=== PATIENT | female | born 1995 | race Caucasian/White ===

== ENCOUNTER 2019-06-29 12:14 | Outpatient (RCR) | payer OTHER, SELFPAY | END 2019-07-27 23:00 | disposition home or self-care (01) | LOC: SPT 12:14 | PROVIDERS: Family Provider Family Medicine; Visit Provider Family Medicine | DX: G89.29 Other chronic pain (principal); M54.6 Pain in thoracic spine | CPT/HCPCS: 97110 ×7; 97161 ==

== ENCOUNTER → 2020-01-19 11:23 | Outpatient (BNVA) | payer OTHER, SELFPAY | PROVIDERS: Family Provider Family Medicine; PCP Family Medicine; Visit Provider Nurse Practitioner Family | DX: R50.9 Fever, unspecified (principal); J06.9 Acute upper respiratory infection, unspecified; Z20.828 Contact with and (suspected) exposure to other viral communicable diseases | CPT/HCPCS: 87400; 87635 ==

== ENCOUNTER → 2020-06-03 11:42 | Outpatient (BNVA) | payer OTHER, SELFPAY | PROVIDERS: Family Provider Family Medicine; PCP Family Medicine; Visit Provider Nurse Practitioner Family | DX: J06.9 Acute upper respiratory infection, unspecified (principal) | CPT/HCPCS: 87635 ==

== ENCOUNTER 2023-04-25 10:25 | Outpatient (CLI) | payer OTHER, SELFPAY ==
--- NOTE | 2023-04-25 10:31 | XR_ITS ---
WS: [id number] Cervical spine, 3 views, 04/25/2023 Clinical Data: acute neck pain Comparison: None. Findings: No compression fractures are seen. The disc heights are normal. There is no prevertebral so ft tissue swelling. The odontoid is unremarkable. The soft tissues of the neck and the lung apices ar e normal. Impression: Negative cervical spine.
== END 2023-04-25 10:26 | disposition home or self-care (01) ==
PROVIDERS: PCP Family Medicine; Visit Provider Family Medicine
DX: M54.12 Radiculopathy, cervical region (principal)
CPT/HCPCS: 72040

== ENCOUNTER 2023-06-05 06:57 | Outpatient (RCR) | payer OTHER, SELFPAY | END 2023-06-27 23:59 | disposition home or self-care (01) | LOC: SPT 06:57 | PROVIDERS: PCP Family Medicine; Visit Provider Family Medicine | DX: M54.12 Radiculopathy, cervical region (principal) | CPT/HCPCS: 97110; 97161 ==

== ENCOUNTER 2023-06-28 06:00 | Outpatient (RCR) | payer OTHER, SELFPAY | END 2023-07-04 23:59 | disposition home or self-care (01) | LOC: SPT 06:00 | PROVIDERS: PCP Family Medicine; Visit Provider Family Medicine | DX: M54.12 Radiculopathy, cervical region (principal) | CPT/HCPCS: 97110; 97530 ==

== ENCOUNTER 2023-08-13 13:12 | Inpatient (IN) | payer OTHER, SELFPAY ==
[2023-08-13 13:18] VITALS: BP 110/73; PULSE 75; RESP 14; TEMP 36.8; O2SAT 98; BMI 27.8
--- NOTE | 2023-08-13 13:30 | ED.C_ITS ---
HPI - Psych 2 General: Chief Complaint: Psychiatric Symptoms Stated Complaint: MHE Time Seen by Provider: 08/13/23 13:14 Source: patient Mode of arrival: ambulatory Limitations: no limitations History of Present Illness: 19-year-old female has been having incre asing depression over the last 2 to 3 days. She states that she has had suicidal thoughts she attempted to jump out of the car she is also had plans of cutting her wrist. Patient's been admitted in the past has a long history depression denies any worsening proving factors. Associated symptoms: Reports depression and suicidal ideation Review of Systems 2 Const: Denies: fever(s), chills, body aches or change in appetite ENMT: Denies: throat pain or dental pain Card: Denies: chest pain Resp: Denies: dyspnea GI: Denies: abdominal pain, nausea, vomiting or diarrhea Musc: Denies: neck pain or back pain Skin/Breast: Denies: rash Neuro: Denies: headache(s) Psych: Reports: depression and suicidal ideation PFS ED 2 PFSH: Medical History Autism spectrum disorder Anxiety and depression Surgical History History of ankle surgery Family History Other CAD (coronary artery disease) Cancer Diabetes Social History Smoking and tobacco/nicotine status: never used tobacco/nicotine Alcohol intake: never Substance/Drug Use: never Physical Exam 2 Const: COMMON NORMALS: no acute distress, patient oriented x3 and healthy appearing HENMT: COMMON NORMALS: normocephalic and atraumatic HEAD & SCALP: n ormocephalic and atraumatic Eye: COMMON NORMALS: Equal, round and reactive pupils present and EOMs intact bilaterally PUPIL: Yes Equal, round and reactive pupils present Neck/C-Spine: COMMON NORMALS: full ROM and supple Chest: COMMONS NORMALS: normal inspection of the chest Resp: COMMON NORMALS: normal respiratory effort Cardio: COMMON NORMALS: regular rate, regular rhythm and No murmurs present (Cardio) RATE: regular rate RHYTHM: regular rhythm Extremity: COMMON NORMALS: normal to inspection and full ROM Neuro: COMMON NORMALS: patient oriented x3, moves all extremities and no focal motor deficits Psych: COMMON NORMALS: mental status grossly normal, Normal thought process present and cooperative MOOD & AFFECT: Yes depressed mood THOUGHT PROCESS: Normal thought process present THOUGHT CONTENT: Yes Suicidality present Skin: COMMON NORMALS: no rashes or lesions noted and no wounds GENERAL SKIN EXAM: no rashes or lesions noted Course 2 Vital Signs: Vital signs: Vital Signs Temperature 98.3 F 08/13/23 13:18 Pulse Rate 75 08/13/23 13:18 Respiratory Rate 14 08/13/23 13:18 Blood Pressure 110/73 08/13/23 13:18 Pulse Oximetry 98 08/13/23 13:18 Oxygen Delivery Me thod Room Air 08/13/23 13:18 MDM - Psych Medical Decision Making Patient presents here with suicidal ideation I did speak to psychiatrist patient is medically cleared she is voluntarily wanting admission will admit at this time. Medical Records I reviewed the patient's medical records. Lab Data I reviewed the patient's lab results. 08/13/23 14:05 08/13/23 14:05 Laboratory Results WBC 6.10 10^3/uL (3.29-11.43) 08/13/23 14:05 RBC 4.58 10^6/uL (3.85-5.65) 08/13/23 14:05 Hgb 14.70 g/dL (11.27-16.99) 08/13/23 14:05 Hct 42.8 % (36-47) 08/13/23 14:05 MCV 93.4 fl (85-98) 08/13/23 14:05 MCH 32.1 pg (27-33) 08/13/23 14:05 MCHC 34.3 g/dL (30-55) 08/13/23 14:05 RDW 11.5 % (12.1-15.1) L 08/13/23 14:05 Plt Count 280 10^3/cmm (157-399) 08/13/23 14:05 MPV 9.3 fL (7.4-10.4) 08/13/23 14:05 Neut % (Auto) 54.1 % 08/13/23 14:05 Lymph % (Auto) 38.7 % 08/13/23 14:05 [place] % (Auto) 6.1 % 08/13/23 14:05 Eos % (Auto) 0.7 % 08/13/23 14:05 Baso % (Auto) 0.2 % 08/13/23 14:05 Neut # (Auto) 3.31 10^3/uL (1.8-7.7) 08/13/23 14:05 Lymph # (Auto) 2.4 10^3/uL (0.8-4.8) 08/13/23 14:05 [place] # (Auto) 0.4 10^3/uL (0.2-0.9) 08/13/23 14:05 Eos # (Auto) 0.0 10^3/uL (0.0-0.8) 08/13/23 14:05 Baso # (Auto) 0.0 10^3/uL (0.0-0.1) 08/13/23 14:05 Nucleated RBC % (auto) 0 % 08/13/23 14:05 Nucleated RBCs # 0.0 /100WBC 08/13/23 14:05 HCG, Qual Negative (Negative) 08/13/23 13:30 Urine Opiates Screen Negative ng/mL (Negative) 08/13/23 13:30 Ur Barbiturates Screen Negative ng/mL (Negative) 08/13/23 13:30 Ur Phencyclidine Scrn Negative ng/mL (Negative) 08/13/23 13:30 Ur Amphetamines Screen Negative ng/mL (Negative) 08/13/23 13:30 U Benzodiazepines Scrn Positive ng/mL (Negative) H 08/13/23 13:30 Urine Cocaine Screen Negative ng/mL (Negative) 08/13/23 13:30 U Marijuana (THC) Screen Negative ng/mL (Negative) 08/13/23 13:30 No radiology studies performed this visit Discharge Plan Discharge Condition: Stable Prescriptions: No Action sumatriptan succinate 100 mg tablet See Rx Instructions PO .COMPLEX Qty: 9 3RF Rx Instructions: take 1 tab at onset of headache; if no relief may repeat 1 tab after at least 2 hrs; max = 4 tabs/24 hr PO lamotrigine 200 mg tablet 200 mg PO BID aripiprazole 15 mg tablet 15 mg PO DAILY propranolol 10 mg tablet 10 mg PO BID Qty: 60 3RF venlafaxine [Effexor XR] 75 mg capsule,extended release 24hr 75 mg PO QAM Qty: 90 0RF escitalopram oxalate [Lexapro] 20 mg tablet 20 mg PO DAILY Qty: 30 0RF albuterol sulfate 90 mcg/actuation HFA aerosol inhaler 2 puff inhalation Q4H PRN (Reason: shortness of breath or wheezing) Qty: 8.5 0RF ramelteon 8 mg tablet PO .qhs All Day Allergy (cetirizine) 10 mg capsule 10 mg PO BID lorazepam 2 mg tablet 2 mg PO QID ondansetron 4 mg tablet,disintegrating 4 mg PO Q6H PRN (Reason: nausea and vomiting) melatonin 3 mg capsule 12 mg PO .qhs chlordiazepoxide HCl 5 mg capsule 5 mg PO TID Referrals: Lexis Yusuf DO [Primary Care Provider] - Coding Level of Care Code ED Software Packager for Chg Gina
[2023-08-13 13:54] LABS: HCG Qualitative Urine. Negative (Negative)
[2023-08-13 14:05] LABS: Amphetamines Screen Urine Negative (Negative); Barbiturates Screen Urine Negative (Negative); Benzodiazepines Screen Urine Positive (Negative); Cocaine Screen Urine Negative (Negative); Opiate Screen Urine Negative (Negative); PCP Screen Urine Negative (Negative); THC Screen Urine Negative (Negative)
[2023-08-13 14:20] LABS: Basophils % 0.2 %; Eosinophils % 0.7 %; Hematocrit 42.8 % (36-47); Lymphocytes # 2.4 10^3/uL (0.8-4.8); Lymphocytes % 38.7 %; Mean Corpuscular HGB Conc 34.3 g/dL (30-55); Mean Corpuscular Hemoglobin 32.1 pg (27-33); Mean Corpuscular Volume 93.4 fl (85-98); Mean Platelet Volume 9.3 fL (7.4-10.4); Monocytes # 0.4 10^3/uL (0.2-0.9); Monocytes % 6.1 %; Neutrophils # 3.31 10^3/uL (1.8-7.7); Neutrophils % 54.1 %; Nucleated Red Blood Cells % 0 %; Platelet Count 280 10^3/cmm (157-399); Red Blood Count 4.58 10^6/uL (3.85-5.65); Red Cell Distribution Width 11.5 % (12.1-15.1)
[2023-08-13 14:38] LABS: Alanine Aminotransferase 15 U/L (0-33); Albumin Level 4.5 g/dL (3.5-5.2); Alkaline Phosphatase 80 U/L (35-105); Anion Gap 13.8 (5-19); Aspartate Amino Transferase 21 U/L (0-32); Blood Urea Nitrogen 16 mg/dL (6-20); Calcium 9.6 mg/dL (8.5-10.5); Carbon Dioxide 27 mmol/L (22-29); Chloride 104 mmol/L (98-107); Glucose 78 mg/dL (65-115); Osmolality Calculated 292 mOsm/kg (285-295); Potassium 3.8 mmol/L (3.5-5.1); Sodium 141 mmol/L (136-145); Total Bilirubin 0.2 mg/dL (0.15-1.2); Total Protein 7.5 g/dL (6.6-8.7)
[2023-08-13 14:43] LABS: Acetaminophen < 5.0 ug/mL (10-30); Alcohol Level < 10 mg/dL (0-10); Salicylate < 0.3 mg/dL (3-10)
[2023-08-13 15:32] VITALS: BP 132/82; PULSE 70; RESP 15; TEMP 36.8; O2SAT 99
[2023-08-13 15:51] VITALS: RESP 16
[2023-08-13 15:56] VITALS: BP 106/71; PULSE 72; RESP 16; TEMP 36.4; O2SAT 100
[2023-08-13] MEDS: propranolol 20 mg Tablet 10 MG PO (18:57)
[2023-08-13] MEDS: cetirizine 10 mg Tablet PO (18:58)
[2023-08-13] MEDS: flu vacc pf 2023-24 (6 mos+) 60 MCG IM (18:58)
[2023-08-13] MEDS: lamoTRIgine 100 mg Tablet 200 MG PO (18:58)
[2023-08-13] MEDS: LORazepam 2 mg Tablet PO (20:23)
[2023-08-13] MEDS: trazodone 50 mg Tablet PO (20:24)
[2023-08-13 20:44] VITALS: RESP 16
[2023-08-14 06:00] VITALS: BP 112/77; PULSE 77; RESP 16; TEMP 37.1; O2SAT 98
[2023-08-14] MEDS: venlafaxine ER (24HR) 75 mg Capsule PO (06:14)
[2023-08-14] MEDS: LORazepam 2 mg Tablet PO ×4 (06:18→18:10)
[2023-08-14] MEDS: ARIPiprazole 30 mg Tablet 15 MG PO (08:29)
[2023-08-14] MEDS: propranolol 20 mg Tablet 10 MG PO ×2 (08:29→17:39)
[2023-08-14] MEDS: cetirizine 10 mg Tablet PO ×2 (08:30→17:39)
[2023-08-14] MEDS: lamoTRIgine 100 mg Tablet 200 MG PO ×2 (08:30→17:39)
[2023-08-14] MEDS: escitalopram 10 mg Tablet 20 MG PO (08:30)
--- NOTE | 2023-08-14 13:17 | W.PM.NPUH&PS ---
Providers/Chief Complaint Admitting Physician: Klever Arredondo MD Primary Care Provider: Lexis Yusuf DO Chief Complaint: MHE HPI NPU History of Present Illness Kamini Meyer is a 27 year old female who was admitted to the neuropsychiatric unit after she had presented to the crisis center complaining of suicidal thoughts. She reported that she had been having recurring thoughts about wanting to go to have an and states that she had cut her arm with a razor blade while attempting to lay outside and freeze to in current fridge and cold temperatures. The patient had reported that she had also attempted to jump out of a moving vehicle. She reports that she has had struggles with managing her mood over the past 3 days after she had learned that her friend had lost a child 4 days after her . She reported that she has been feeling more sad and unmotivated while not wishing to engage in self-care including brushing her teeth. She endorses anhedonia. Patient had endorsed a past history of several psychiatric symptoms as she had reported a history of catatonia and a past history of psychosis. She reports that she has been diagnosed with schizoaffective disorder and states that she had previously been psychotic a few years ago with paranoia and irrational worries that had improved with the use of an antipsychotic agent. She reports frequently struggling with managing depression. She reports often having thoughts of harming herself but states that she is able to keep it under control. 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 She reports having struggles with managing social situations and reports having frequent bouts of anxiety with an inability to manage her emotions when she becomes extremely upset. She had reported that she had had some change in medication including the recent initiation of a beta-ramon for managing anxiety and headaches. She does report a recent increase in the frequency of headaches that she describes as quite disabling with a history of the presence of aura was and photosensitivity. The patient denied any current psychotic symptoms nor did she endorse any symptoms recently of worsening catatonia as she has been very compliant with her medication regimen. She does report some increase in hopelessness. She did not endorse any clear loli. She reported no change in appetite and reported some difficulties with falling asleep over the past 3 to 4 days. Inpatient/outpatient psychiatric history: Patient had been first psychiatrically hospitalized at the age of 17 and describes 3 other previous inpatient hospitalizations with no recent hospitalization in several years according to the patient. She reports that she follows Dr. Dennis Mary for outpatient psychiatric treatment in [place], [place] along with Sara Small for weekly psychotherapy at the [facility]. She had previously reported being treated for depression as early as age of 10. Drug and alcohol history: None Allergies: Cogentin Current medications: Abilify 15 mg daily, Zyrtec 10 mg twice a day, Librium 5 mg 3 times a day, Lexapro 20 mg daily, Lamictal 200 mg twice a day, lorazepam 2 mg 4 times a day, magnesium 200 mg twice a day, melatonin 12 mg at night, propranolol 10 mg twice a day, ondansetron, ramelteon 8 mg at night, sumatriptan as needed, Artane 2 mg tart twice a day, Effexor XR 75 mg daily, Legal history: None Family psychiatric history: None reported Social history: Patient was born in [facility] and raised by her mother and father in an intact family. Her mother is a physician and her father is a audiovisual tech. She has 2 sisters one was older age 30 and younger sibling age 24. She reports that she was homeschooled. She reports no history of sexual physical or emotional abuse. She had reported struggling with socially engaging with others in an age-appropriate fashion. She identifies herself as a heterosexual. She currently is not involved in any intimate relationships. She currently lives at home with her parents. She states that she had received an equivalent diploma and reports that she is taking some college courses. Meds NPU Home Medications Medication Instructions Recorded Confirmed Last Taken Type venlafaxine 75 mg capsule,extended 75 mg PO QAM #90 caps 10/24/20 08/13/23 08/13/23 Rx release 24 hr (Effexor XR) escitalopram oxalate 20 mg tablet 20 mg PO DAILY #30 tabs 10/19/21 08/13/23 08/13/23 Rx (Lexapro) albuterol sulfate 90 mcg/actuation 2 puff inhalation Q4H PRN 12/21/22 08/13/23 Unknown Rx aerosol inhaler shortness of breath or wheezing #8.5 grams aripiprazole 15 mg tablet 15 mg PO DAILY 04/23/23 08/13/23 08/13/23 History lamotrigine 200 mg tablet 200 mg PO BID 04/23/23 08/13/23 08/13/23 History sumatriptan succinate 100 mg tablet See Rx Instructions PO .COMPLEX #9 05/10/23 08/13/23 Unknown Rx tabs propranolol 10 mg tablet 10 mg PO BID #60 tabs 08/02/23 08/13/23 08/13/23 Rx cetirizine 10 mg capsule (All Day 10 mg PO BID 08/13/23 08/13/23 08/13/23 History Allergy (cetirizine)) chlordiazepoxide HCl 5 mg capsule 5 mg PO TID 08/13/23 08/13/23 08/13/23 History lorazepam 2 mg tablet 2 mg PO QID 08/13/23 08/13/23 08/13/23 History melatonin 3 mg capsule 12 mg PO BEDTIME 08/13/23 08/13/23 08/12/23 History ondansetron 4 mg disintegrating 4 mg PO Q6H PRN nausea and vomiting 08/13/23 08/13/23 Unknown History tablet ramelteon 8 mg tablet 8 mg PO BEDTIME 08/13/23 08/13/23 08/12/23 History trihexyphenidyl 2 mg tablet 2 mg PO BID 08/13/23 08/13/23 08/13/23 History magnesium 200 mg tablet 200 mg PO BID 08/14/23 08/14/23 08/13/23 History Allergies Allergy/AdvReac Type Severity Reaction Status Date / Time benztropine [From Cogentin] Allergy ALGY-Anaphy Verified 08/13/23 13:23 laxis PFSH NPU PFSH: Medical History (Updated 08/14/23 @ 15:56 by Klever Arredondo MD) Autism spectrum disorder Anxiety and depression Surgical History History of ankle surgery Family History Other CAD (coronary artery disease) Cancer Diabetes Social History Smoking and tobacco/nicotine status: never used tobacco/nicotine Alcohol intake: never Substance/Drug Use: never Mental Status Exam MSE Comments: She is a casually dressed overweight white female who was pleasant and cooperative on interview. She appeared to be having some difficulty sitting still with slight rocking behavior appreciated. She was alert and oriented to person place time and situation. Her gait was within normal limits. Her hygiene was fair. There was no evidence of any abnormal involuntary motor movements. Her thought process is linear logical and goal-directed. Her thought content showed evidence of suicidal ideation with a plan reported. She denied any homicidal ideation. She did not appear to be responding to internal stimuli. There was no clear evidence of delusional thinking. Her speech was normal in regards to rate, normal in volume and monotone in quality. Her attention span appeared fair. Her recent and remote memory appeared grossly intact. Her mood was described as anxious. Her affect was restricted in range and mood congruent. Her insight was poor. Her impulse control appeared poor. Her judgment was poor at this time. Vitals/I&O/Wt Last Vital Signs Temp 98.7 F 08/14/23 06:00 Pulse 77 08/14/23 06:00 Resp 16 08/14/23 06:00 BP 112/77 08/14/23 06:00 Pulse Ox 98 08/14/23 06:00 O2 Del Method Room Air 08/14/23 06:00 Weight last 48 hrs Weight 80.739 kg Data NPU 08/13/23 14:05 08/13/23 14:05 A&P Assessment and plan (1) Suicidal ideation: (2) Autistic disorder: (3) Schizoaffective disorder, depressive type: (4) Depressed mood: Plan Patient is a 27-year-old white female with likely autistic spectrum disorder along with a history of schizoaffective disorder depressed type and catatonia admitted with suicidal ideation and increased anxiety. 1. Encourage individual, group and milieu therapy. ?2.Restart medications with likely reduction in effexor xr to 37.5mg daily. 3.Continue q-15 minute checks for safety.? 4. Gathering collateral information Involuntary Hold Information 96 Hour Hold: 96 Hour Involuntary Admission: No Attestations NPU Medical Necessity Statement*: Inpatient hospitalization is medically necessary and deemed to ?be ?the clinically appropriate intervention ?at this time.? We will monitor/initiate medications and make changes as indicated.? The patient will be in the hospital for over 2 midnights.? The patient?s likely length of stay 2-4 days. Coding Level of Care Code Acute Code for Chg Fwd Diagnoses Suicidal ideation R45.851 Autistic disorder F84.0 Schizoaffective disorder, depressive type F25.1 Depressed mood R45.89
[2023-08-14 14:00] VITALS: BP 112/72; PULSE 96; RESP 13; TEMP 36.4; O2SAT 98
[2023-08-14] MEDS: acetaminophen 325 mg Tablet 650 MG PO (19:34)
[2023-08-14] MEDS: NON-FORMULARY MEDICATION (Ramelteon 8 mg tablet) 8 EACH PO (20:18)
[2023-08-14 20:45] VITALS: BP 104/70; PULSE 69; RESP 20; TEMP 36.5; O2SAT 100
[2023-08-15] MEDS: venlafaxine ER (24HR) 37.5 mg Capsule PO (05:45)
[2023-08-15 06:00] VITALS: BP 127/81; PULSE 90; RESP 20; TEMP 36.7; O2SAT 94
[2023-08-15] MEDS: LORazepam 2 mg Tablet PO ×3 (06:07→15:03)
[2023-08-15] MEDS: cetirizine 10 mg Tablet PO (10:53)
[2023-08-15] MEDS: propranolol 20 mg Tablet 10 MG PO (10:53)
[2023-08-15] MEDS: lamoTRIgine 100 mg Tablet 200 MG PO (10:54)
[2023-08-15] MEDS: escitalopram 10 mg Tablet 20 MG PO (10:55)
[2023-08-15] MEDS: ARIPiprazole 30 mg Tablet 15 MG PO (10:55)
[2023-08-15] MEDS: hyDROXYzine 25 mg Capsule 50 MG PO (12:32)
--- NOTE | 2023-08-15 14:36 | W.PM.NPUDCS ---
Diagnoses at Discharge Discharge Diagnosis (1) Schizoaffective disorder, depressive type: Status: Acute (2) Suicidal ideation: Status: Acute (3) Autistic disorder: Status: Acute (4) Depressed mood: Status: Acute Reason for Visit Reason for Visit: MHE Brief History: History of Present Illness Kamini Meyer is a 27 year old female who was admitted to the neuropsychiatric unit after she had presented to the crisis center complaining of suicidal thoughts. She reported that she had been having recurring thoughts about wanting to go to have an and states that she had cut her arm with a razor blade while attempting to lay outside and freeze to in current fridge and cold temperatures. The patient had reported that she had also attempted to jump out of a moving vehicle. She reports that she has had struggles with managing her mood over the past 3 days after she had learned that her friend had lost a child 4 days after her . She reported that she has been feeling more sad and unmotivated while not wishing to engage in self-care including brushing her teeth. She endorses anhedonia. Patient had endorsed a past history of several psychiatric symptoms as she had reported a history of catatonia and a past history of psychosis. She reports that she has been diagnosed with schizoaffective disorder and states that she had previously been psychotic a few years ago with paranoia and irrational worries that had improved with the use of an antipsychotic agent. She reports frequently struggling with managing depression. She reports often having thoughts of harming herself but states that she is able to keep it under control. The patient had endorsed a past history of autistic disorder with difficulties with social engagement, a history of rigid thinking and a history of stereotypies, difficulties with managing changes in routine, and restricted areas of interest that she had described as having been present since her resident physician in radiology. She reports having struggles with managing social situations and reports having frequent bouts of anxiety with an inability to manage her emotions when she becomes extremely upset. She had reported that she had had some change in medication including the recent initiation of a beta-ramon for managing anxiety and headaches. She does report a recent increase in the frequency of headaches that she describes as quite disabling with a history of the presence of aura was and photosensitivity. The patient denied any current psychotic symptoms nor did she endorse any symptoms recently of worsening catatonia as she has been very compliant with her medication regimen. She does report some increase in hopelessness. She did not endorse any clear loli. She reported no change in appetite and reported some difficulties with falling asleep over the past 3 to 4 days. Inpatient/outpatient psychiatric history: Patient had been first psychiatrically hospitalized at the age of 17 and describes 3 other previous inpatient hospitalizations with no recent hospitalization in several years according to the patient. She reports that she follows Dr. Dennis Mary for outpatient psychiatric treatment in [place], [place] along with Sara Small for weekly psychotherapy at the [facility]. She had previously reported being treated for depression as early as age of 10. Drug and alcohol history: None Allergies: Cogentin Current medications: Abilify 15 mg daily, Zyrtec 10 mg twice a day, Librium 5 mg 3 times a day, Lexapro 20 mg daily, Lamictal 200 mg twice a day, lorazepam 2 mg 4 times a day, magnesium 200 mg twice a day, melatonin 12 mg at night, propranolol 10 mg twice a day, ondansetron, ramelteon 8 mg at night, sumatriptan as needed, Artane 2 mg tart twice a day, Effexor XR 75 mg daily, Legal history: None Family psychiatric history: None reported Social history: Patient was born in [facility] and raised by her mother and father in an intact family. Her mother is a physician and her father is a cleaning associate. She has 2 sisters one was older age 30 and younger sibling age 24. She reports that she was homeschooled. She reports no history of sexual physical or emotional abuse. She had reported struggling with socially engaging with others in an age-appropriate fashion. She identifies herself as a heterosexual. She currently is not involved in any intimate relationships. She currently lives at home with her parents. She states that she had received an equivalent diploma and reports that she is taking some college courses. Hospital Course Hospital Course During the hospitalization, the patient had routine laboratory studies which were within normal limits except for a few outliers.? Additionally, there was a general medical evaluation which was also within normal limits and revealed no new acute processes.? At the time of discharge, lethality was denied and her suicidality was resolving. Mood and anxiety were well managed.? The patient endorsed a plan to avoid all drugs of abuse and follow up with the aftercare recommendations of the treatment team.? The patient was evaluated and deemed to be absent credible lethality and had achieved the maximum benefit from an inpatient hospitalization, and so was discharged.? The patient's medication were restarted with the only change being a reduction in effexor xr to 37.5mg daily with a plan to discontinue this medication after 1 week (at home). It was recommended that librium be tapered by 5mg a month over the next three months to avoid further polypharmacy issues. Involuntary Hold Information 96 Hour Hold: 96 Hour Involuntary Admission: No Mental Status Exam MSE Comments: She is a casually dressed overweight white female who was pleasant and cooperative on interview. She appeared to be having some difficulty sitting still but no clear stereotypies appreciated. She was alert and oriented to person place time and situation. Her gait was within normal limits. Her hygiene was fair. There was no evidence of any abnormal involuntary motor movements. Her thought process is linear logical and goal-directed. Her thought content showed evidence of suicidal ideation with a plan reported. She denied any homicidal ideation. She did not appear to be responding to internal stimuli. There was no clear evidence of delusional thinking. Her speech was normal in regards to rate, normal in volume and monotone in quality. Her attention span appeared fair. Her recent and remote memory appeared grossly intact. Her mood was described as better. Her affect was somewhat flat. Her insight was fair. Her impulse control appeared fair. Her judgment was adequate on discharge. Discharge Data Studies Completed and Pending: Laboratory Results WBC 6.10 10^3/uL (3.2 9-11.43) 08/13/23 14:05 RBC 4.58 10^6/uL (3.8 5-5.65) 08/13/23 14:05 Hgb 14.70 g/dL (11.27 -16.99) 08/13/23 14:05 Hct 42.8 % (36-47) 08/13/23 14:05 MCV 93.4 fl (85-98) 08/13/23 14:05 MCH 32.1 pg (27-33) 08/13/23 14:05 MCHC 34.3 g/dL (30-55) 08/13/23 14:05 RDW 11.5 % (12.1-15.1 ) L 08/13/23 14:05 Plt Count 280 10^3/cmm (157 -399) 08/13/23 14:05 MPV 9.3 fL (7.4-10.4) 08/13/23 14:05 Neut % (Auto) 54.1 % 08/13/23 14:05 Lymph % (Auto) 38.7 % 08/13/23 14:05 [place] % (Auto) 6.1 % 08/13/23 14:05 Eos % (Auto) 0.7 % 08/13/23 14:05 Baso % (Auto) 0.2 % 08/13/23 14:05 Neut # (Auto) 3.31 10^3/uL (1.8 -7.7) 08/13/23 14:05 Lymph # (Auto) 2.4 10^3/uL (0.8- 4.8) 08/13/23 14:05 [place] # (Auto) 0.4 10^3/uL (0.2- 0.9) 08/13/23 14:05 Eos # (Auto) 0.0 10^3/uL (0.0- 0.8) 08/13/23 14:05 Baso # (Auto) 0.0 10^3/uL (0.0- 0.1) 08/13/23 14:05 Nucleated RBC % (a uto) 0 % 08/13/23 14:05 Nucleated RBCs # 0.0 /100WBC 08/13/23 14:05 Sodium 141 mmol/L (136-1 45) 08/13/23 14:05 Potassium 3.8 mmol/L (3.5-5 .1) 08/13/23 14:05 Chloride 104 mmol/L (98-10 7) 08/13/23 14:05 Carbon Dioxide 27 mmol/L (22-29) 08/13/23 14:05 Anion Gap 13.8 (5-19) 08/13/23 14:05 BUN 16 mg/dL (6-20) 08/13/23 14:05 Creatinine 1.0 mg/dL (0.5-0. 9) H 08/13/23 14:05 GFR Calculation 66.0 mL/min (90-1 30) L 08/13/23 14:05 Glucose 78 mg/dL (65-115) 08/13/23 14:05 Calculated Osmolal ity 292 mOsm/kg (285- 295) 08/13/23 14:05 Calcium 9.6 mg/dL (8.5-10 .5) 08/13/23 14:05 Total Bilirubin 0.2 mg/dL (0.15-1 .2) 08/13/23 14:05 AST 21 U/L (0-32) 08/13/23 14:05 ALT 15 U/L (0-33) 08/13/23 14:05 Alkaline Phosphata se 80 U/L (35-105) 08/13/23 14:05 Total Protein 7.5 g/dL (6.6-8.7 ) 08/13/23 14:05 Albumin 4.5 g/dL (3.5-5.2 ) 08/13/23 14:05 Globulin 3.0 g/dL (1.3-4.6 ) 08/13/23 14:05 HCG, Qual Negative (Negati ve) 08/13/23 13:30 Salicylates < 0.3 mg/dL (3-10 ) L 08/13/23 14:05 Urine Opiates Scre en Negative ng/mL (N egative) 08/13/23 13:30 Acetaminophen < 5.0 ug/mL (10-3 0) L 08/13/23 14:05 Ur Barbiturates Sc reen Negative ng/mL (N egative) 08/13/23 13:30 Ur Phencyclidine S crn Negative ng/mL (N egative) 08/13/23 13:30 Ur Amphetamines Sc reen Negative ng/mL (N egative) 08/13/23 13:30 U Benzodiazepines Scrn Positive ng/mL (N egative) H 08/13/23 13:30 Urine Cocaine Scre en Negative ng/mL (N egative) 08/13/23 13:30 U Marijuana (THC) Screen Negative ng/mL (N egative) 08/13/23 13:30 Ethyl Alcohol < 10 mg/dL (0-10) 08/13/23 14:05 Vitals: Last Vital Signs Temp 98.1 F 08/15/23 06:00 Pulse 90 08/15/23 06:00 Resp 20 H 08/15/23 06:00 BP 127/81 08/15/23 06:00 Pulse Ox 94 08/15/23 06:00 O2 Del Method Room Air 01/18/24 06:00 Discharge Plan Discharge Patient Disposition: Home Condition: Stable Prescriptions: New venlafaxine 37.5 mg Capsule,Extended Release 24hr 37.5 mg PO QAM 7 Days Qty: 7 0RF Rx Instructions: Take for 7 days then discontinue Venlafaxine. Continued sumatriptan succinate 100 mg tablet See Rx Instructions PO .COMPLEX Qty: 9 3RF Rx Instructions: take 1 tab at onset of headache; if no relief may repeat 1 tab after at least 2 hrs; max = 4 tabs/24 hr PO lamotrigine 200 mg tablet 200 mg PO BID aripiprazole 15 mg tablet 15 mg PO DAILY propranolol 10 mg tablet 10 mg PO BID Qty: 60 3RF escitalopram oxalate [Lexapro] 20 mg tablet 20 mg PO DAILY Qty: 30 0RF albuterol sulfate 90 mcg/actuation HFA aerosol inhaler 2 puff inhalation Q4H PRN (Reason: shortness of breath or wheezing) Qty: 8.5 0RF ramelteon 8 mg tablet 8 mg PO BEDTIME All Day Allergy (cetirizine) 10 mg capsule 10 mg PO BID lorazepam 2 mg tablet 2 mg PO QID ondansetron 4 mg tablet,disintegrating 4 mg PO Q6H PRN (Reason: nausea and vomiting) melatonin 3 mg capsule 12 mg PO BEDTIME chlordiazepoxide HCl 5 mg capsule 5 mg PO TID trihexyphenidyl 2 mg tablet 2 mg PO BID magnesium 200 mg Tablet 200 mg PO BID Discontinued venlafaxine [Effexor XR] 75 mg capsule,extended release 24hr 75 mg PO QAM Qty: 90 0RF Discharge Orders: Discharge Order (Routine); Ordered 08/15/23 Ordered By: Klever Arredondo Referrals: [facility], MD Tyra [Other] - 10/18/23 1:30 pm (Contact the office to recieve a sooner appointment date) [facility]-Sara Small [Other] - 08/16/[address] [facility] [Outside] - 08/22/23 8:30 am (Initial assessment for casework services) Lexis Yusuf DO [Primary Care Provider] - Discharge Diet: Usual diet Discharge Activity: Resume usual activity Patient Instructions: Opioid Safety Plan of Treatment: Discussed need for further confirmation of autistic spectrum disorder-recommend schedule with neuropsychologist that uses ADOS2 scale. Consider attendance at [facility] trained therapist([facility]) -evidence based treatment for Autistic disorder. Recommend DBT (dialectical behavioral therapy) for management of chronic self injurious behavior and chronic parasuicidal behaviors (either group or individual DBT) Discharge Attestations NPU Time Spent in Discharge Care*: less than 30 min Specific Discharge Activities: Specific discharge activities: educating patient, discussing with case sealer/social workers/dc planners and documenting/other paperwork Coding Level of Care Code Acute Code for [facility] Fwd Diagnoses Schizoaffective disorder, depressive type F25.1 Suicidal ideation R45.851 Autistic disorder F84.0 Depressed mood R45.89
[2023-08-15 14:53] VITALS: BP 127/81; PULSE 90; RESP 20; TEMP 36.7; O2SAT 94
== END 2023-08-15 15:08 | disposition home or self-care (01) | DRG 885 ==
LOC: ER 13:33 → NP 15:11
PROVIDERS: Admitting Provider Psychiatry & Neurology Psychiatry; Emergency Provider Emergency Medicine; PCP Family Medicine; Visit Provider Psychiatry & Neurology Psychiatry
DX: F25.1 Schizoaffective disorder, depressive type (principal); R45.851 Suicidal ideations; F84.0 Autistic disorder
CPT/HCPCS: 80053; 80306; 80307; 81025; 85025; 90471; 90686; 97150; 97165; 99285

== ENCOUNTER → 2023-11-25 12:03 | Outpatient (BNVA) | payer OTHER, SELFPAY | PROVIDERS: PCP Family Medicine; Visit Provider Psychiatry & Neurology Psychiatry | DX: F41.9 Anxiety disorder, unspecified (principal); Z79.899 Other long term (current) drug therapy | CPT/HCPCS: 80061; 83036 ==

== ENCOUNTER 2024-02-10 14:51 | Outpatient (CLI) | payer OTHER, SELFPAY ==
[2023-12-12 16:59] VITALS: BP 123/71; BMI 32.5
== END 2024-02-10 14:52 | disposition home or self-care (01) ==
LOC: SLEEP 14:52
PROVIDERS: PCP Family Medicine; Visit Provider Family Medicine
DX: G47.33 Obstructive sleep apnea (adult) (pediatric) (principal)
CPT/HCPCS: G0399

== ENCOUNTER 2024-03-11 20:32 | Emergency (ER) | payer OTHER, SELFPAY ==
[2023-12-12 16:59] VITALS: BP 123/71; BMI 32.5
[2024-03-11 20:41] VITALS: BP 132/82; PULSE 91; RESP 16; TEMP 36.6; O2SAT 98; BMI 34.7
[2024-03-11 22:02] LABS: Bilirubin Urine Negative (Negative); Blood Urine Negative (Negative); Glucose Urine UA Negative (Normal); Ketones Urine Negative (Negative); Leukocyte Esterase Urine Negative (Negative); Nitrate Urine Negative (Negative); Protein Urine Negative (Negative); Specific Gravity, Urine 1.012 (1.005-1.030); Urine Appearance Clear (CLEAR); Urine Color Yellow (Yellow); Urobilinogen Urine 0.2 mg/dL (Negative); pH Urine 5.5 (5-7)
[2024-03-11 22:07] LABS: Bacteria Urine None Seen /hpf; Hyaline Casts Urine 0-4 /lpf; RBC Urine 0-2 /hpf (0-2); Squamous Epithelial Cell Urine 0-5 /hpf (0-5); WBC Urine 0-5 /hpf (0-5)
--- NOTE | 2024-03-11 22:28 | W.ED.ALLEREA ---
HPI - Allergic Reaction General: Chief complaint: Allergic Reaction Stated complaint: Allergic reaction, sob Time Seen by Provider: 03/11/24 21:22 History of Present Illness: HPI narrative: 28-year-old female with a history of asthma and autism who presents the emergency room with episodes of vomiting. She says she ate some salad dressing that she thought she was having allergic reaction to. She said it made her throw up. She became concerned that this might cause her to stop breathing. She has not been short of breath and had no chest pain. No rash. She did take some Benadryl. She said she had another episode of nausea and vomiting this afternoon which made her come to the emergency room. No abdominal pain. No chest pain. No shortness of breath. No fevers. Related Data Home Medications Medication Instructions Recorded Confirmed aripiprazole 15 mg tablet 15 mg PO DAILY 04/23/23 01/23/24 lamotrigine 200 mg tablet 200 mg PO BID 04/23/23 01/23/24 cetirizine 10 mg capsule (All Day 10 mg PO BID 08/13/23 01/23/24 Allergy (cetirizine)) lorazepam 2 mg tablet 2 mg PO QID 08/13/23 01/23/24 melatonin 3 mg capsule 12 mg PO BEDTIME 08/13/23 01/23/24 ramelteon 8 mg tablet 8 mg PO BEDTIME 08/13/23 01/23/24 magnesium 200 mg tablet 200 mg PO BID 08/14/23 01/23/24 escitalopram oxalate 20 mg tablet 40 mg PO DAILY 01/23/24 (Lexapro) Previous Rx's Medication Instructions Recorded meloxicam 15 mg tablet 15 mg PO DAILY #30 tabs 11/19/23 sumatriptan succinate 100 mg tablet See Rx Instructions .Route 12/11/23 .COMPLEX #9 ea topiramate 25 mg tablet (Topamax) 25 mg PO BID 1 month #60 tabs 01/23/24 albuterol 90 mcg-budesonide 80 2 inh inhalation BID PRN wheezing 02/10/24 mcg/actuation HFA aerosol inhaler #10.7 grams (Airsupra) Auto CPAP machine with tubing and #1 ea 02/13/24 supplies ondansetron 8 mg disintegrating 8 mg PO Q6H #14 tabs 03/11/24 tablet Allergies Allergy/AdvReac Type Severity Reaction Status Date / Time benztropine [From Cogentin] Allergy ALGY-Anaphy Verified 01/23/24 07:55 laxis Review of Systems Narrative: Constitutional symptoms: Negative except as documented in HPI. Skin symptoms: Negative except as documented in HPI. Eye symptoms: Negative except as documented in HPI. ENMT symptoms: Negative except as documented in HPI. Respiratory symptoms: Negative except as documented in HPI. Cardiovascular symptoms: Negative except as documented in HPI. Gastrointestinal symptoms: Negative except as documented in HPI. Genitourinary symptoms: Negative except as documented in HPI. Musculoskeletal symptoms: Negative except as documented in HPI. Neurologic symptoms: Negative except as documented in HPI. Psychiatric symptoms: Negative except as documented in HPI. Endocrine symptoms: Negative except as documented in HPI. PFSH ED PFSH: Medical History (Updated 03/11/24 @ 23:06 by Bee Pierce MD) Obstructive sleep apnea of adult Psychiatric care Autism spectrum disorder Anxiety and depression Surgical History History of ankle surgery Family History Other CAD (coronary artery disease) Cancer Diabetes Social History Smoking and tobacco/nicotine status: never used tobacco/nicotine Alcohol intake: never Substance/Drug Use: never Physical Exam Narrative: EXAM NARRATIVE: General: Alert, no acute distress. Skin: Warm, dry. Head: Normocephalic, atraumatic. Neck: Supple, trachea midline. Eye: Extraocular movements are intact. Ears, nose, mouth and throat: mucosa moist. Cardiovascular: Regular, Normal peripheral perfusion. Respiratory: Lungs are clear to auscultation, respirations are non-labored, breath sounds are equal, Symmetrical chest wall expansion. Gastrointestinal: Soft, Nontender, Non distended Musculoskeletal: Normal ROM, no deformity. Neurological: Alert and oriented, No focal neurological deficit observed. Psychiatric: Cooperative, odd affect Course Vital Signs: Vital signs: Vital Signs Temperature 97.9 F 03/11/24 20:41 Pulse Rate 80 03/11/24 23:00 Respiratory Rate 16 03/11/24 23:00 Blood Pressure 129/80 03/11/24 23:00 Pulse Oximetry 95 03/11/24 23:00 Oxygen Delivery Me thod Room Air 03/11/24 23:00 MDM - Allergic Reaction Medical Decision Making Medical decision making: Differential diagnosis for this patient with nausea and vomiting including but not limited to and based on the above HPI, review of systems and physical exam: Urinary tract infection. Appendicitis. Cholecystis. colitis. small bowel obstruction. crohn's flare. pancreatitis. gastritis. peptic ulcer. cyclic vomiting. Viral illness. Influenza. COVID. - Workup - labwork and imaging ordered to evaluate, rule in and rule out above pathologies. Lab Review: Laboratory results were reviewed and interpreted by myself the emergency room physician. Lab work is unremarkable. No leukocytosis. No anemia. No renal failure. Lipase is negative. Urinalysis is normal. I reviewed the patient's medical record. Reexamination: Patient remained stable. No increased work of breathing. No altered mental status. No focal motor deficits. Assessment and plan: Vomiting - Discharged home - Discussed plan with patient. Answered any questions. - Evaluation and treatment of this problem were appropriate in the emergency setting. Lab Data 03/11/24 22:20 03/11/24 22:20 Laboratory Results WBC 7.89 10^3/uL (3.29-11.43) 03/11/24 22:20 RBC 4.37 10^6/uL (3.85-5.65) 03/11/24 22:20 Hgb 13.30 g/dL (11.27-16.99) 03/11/24 22:20 Hct 40.0 % (36-47) 03/11/24 22:20 MCV 91.5 fl (85-98) 03/11/24 22:20 MCH 30.4 pg (27-33) 03/11/24 22:20 MCHC 33.3 g/dL (30-55) 03/11/24 22:20 RDW 12.0 % (12.1-15.1) L 03/11/24 22:20 Plt Count 320 10^3/cmm (157-399) 03/11/24 22:20 MPV 8.9 fL (7.4-10.4) 03/11/24 22:20 Neut % (Auto) 56.5 % 03/11/24 22:20 Lymph % (Auto) 33.6 % 03/11/24 22:20 [place] % (Auto) 8.4 % 03/11/24 22:20 Eos % (Auto) 0.8 % 03/11/24 22:20 Baso % (Auto) 0.4 % 03/11/24 22:20 Neut # (Auto) 4.47 10^3/uL (1.8-7.7) 03/11/24 22:20 Lymph # (Auto) 2.7 10^3/uL (0.8-4.8) 03/11/24 22:20 [place] # (Auto) 0.7 10^3/uL (0.2-0.9) 03/11/24 22:20 Eos # (Auto) 0.1 10^3/uL (0.0-0.8) 03/11/24 22:20 Baso # (Auto) 0.0 10^3/uL (0.0-0.1) 03/11/24 22:20 Nucleated RBC % (auto) 0 % 03/11/24 22:20 Nucleated RBCs # 0.0 /100WBC 03/11/24 22:20 Sodium 139 mmol/L (136-145) 03/11/24 22:20 Potassium 3.8 mmol/L (3.5-5.1) 03/11/24 22:20 Chloride 103 mmol/L (98-107) 03/11/24 22:20 Carbon Dioxide 22 mmol/L (22-29) 03/11/24 22:20 Anion Gap 17.8 (5-19) 03/11/24 22:20 BUN 17 mg/dL (6-20) 03/11/24 22:20 Creatinine 0.7 mg/dL (0.5-0.9) 03/11/24 22:20 GFR Calculation 98.9 mL/min (90-130) 03/11/24 22:20 Glucose 94 mg/dL (65-115) 03/11/24 22:20 Calculated Osmolality 289 mOsm/kg (285-295) 03/11/24 22:20 Calcium 9.0 mg/dL (8.5-10.5) 03/11/24 22:20 Total Bilirubin 0.2 mg/dL (0.15-1.2) 03/11/24 22:20 AST 26 U/L (0-32) 03/11/24 22:20 ALT 30 U/L (0-33) 03/11/24 22:20 Alkaline Phosphatase 91 U/L (35-105) 03/11/24 22:20 C-Reactive Protein 3.0 mg/L (0.0-4.9) 03/11/24 22:20 Total Protein 7.3 g/dL (6.6-8.7) 03/11/24 22:20 Albumin 4.3 g/dL (3.5-5.2) 03/11/24 22:20 Globulin 3.0 g/dL (1.3-4.6) 03/11/24 22:20 Lipase 23 U/L (13-60) 03/11/24 22:20 Urine Color Yellow (Yellow) 03/11/24 21:45 Urine Appearance Clear (CLEAR) 03/11/24 21:45 Urine pH 5.5 (5-7) 03/11/24 21:45 Ur Specific [place] 1.012 (1.005-1.030) 03/11/24 21:45 Urine Protein Negative (Negative) 03/11/24 21:45 Urine Glucose (UA) Negative (Normal) 03/11/24 21:45 Urine Ketones Negative (Negative) 03/11/24 21:45 Urine Blood Negative (Negative) 03/11/24 21:45 Urine Nitrate Negative (Negative) 03/11/24 21:45 Urine Bilirubin Negative (Negative) 03/11/24 21:45 Urine Urobilinogen 0.2 mg/dL (Negative) 03/11/24 21:45 Ur Leukocyte Esterase Negative (Negative) 03/11/24 21:45 Urine RBC 0-2 /hpf (0-2) 03/11/24 21:45 Urine WBC 0-5 /hpf (0-5) 03/11/24 21:45 Ur Squamous Epith Cells 0-5 /hpf (0-5) 03/11/24 21:45 Amorphous Sediment Not Reportable 03/11/24 21:45 Urine Bacteria None seen /hpf (NONE) 03/11/24 21:45 Hyaline Casts 0-4 /lpf H 03/11/24 21:45 No radiology studies performed this visit Discharge Plan Discharge Patient Disposition: Home Clinical Impression: Vomiting Condition: Stable Prescriptions: New ondansetron 8 mg tablet,disintegrating 8 mg PO Q6H Qty: 14 0RF Rx Instructions: Take 1/2-1 tab every 6 hours as needed for nausea and vomiting No Action lamotrigine 200 mg tablet 200 mg PO BID aripiprazole 15 mg tablet 15 mg PO DAILY meloxicam 15 mg tablet 15 mg PO DAILY Qty: 30 0RF escitalopram oxalate [Lexapro] 20 mg tablet 40 mg PO DAILY Rx Instructions: increased by PCP per patient report topiramate [Topamax] 25 mg tablet 25 mg PO BID 30 Days Qty: 60 6RF ramelteon 8 mg tablet 8 mg PO BEDTIME All Day Allergy (cetirizine) 10 mg capsule 10 mg PO BID lorazepam 2 mg tablet 2 mg PO QID melatonin 3 mg capsule 12 mg PO BEDTIME sumatriptan succinate 100 mg tablet See Rx Instructions .ROUTE .COMPLEX Qty: 9 3RF Dose Instruction: TAKE 1 TABLET BY MOUTH at ONSET of headache *if no RELIEF MAY REPEAT ONE tab AFTER at least TWO hours* *max of FOUR tabs PER day* Rx Instructions: TAKE 1 TABLET BY MOUTH at ONSET of headache *if no RELIEF MAY REPEAT ONE tab AFTER at least TWO hours* *max of FOUR tabs PER day* Airsupra 90-80 mcg/actuation HFA aerosol inhaler 2 inh inhalation BID PRN (Reason: wheezing) Qty: 10.7 2RF (DME) Auto CPAP machine with tubing and supplies See Rx Instructions .Route .MEDSUPPLY Qty: 1 0RF Rx Instructions: As directed, recommend a auto CPAP settings 6-16 magnesium 200 mg Tablet 200 mg PO BID Discharge Orders: Discharge ED (Routine); Ordered 03/11/24 Ordered By: Bee Pierce Patient Instructions: Acute Nausea and Vomiting (DC) Activity Restrictions/Additional Instructions: Thank you for choosing [facility] for your healthcare needs today. Please realize this is an emergency room and that we are providing you with a medical screening exam and this may not be complete and all inclusive of all the testing and or work up that you may need to determine your ailment or severity of your illness. You have been screened and evaluated and felt safe for discharge. Health conditions do change or evolve sometimes and as such it is important that you follow up with your Primary Doctor to be re checked, 3-5 days is a general good time frame for follow up. You are always welcome to return to the ED for re assessment if your symptoms are worsening or you have new concerns Coding Level of Care Code ED Retail Merchandising Coordinator for Akilah Fuentes
[2024-03-11 22:33] LABS: Basophils % 0.4 %; Eosinophils # 0.1 10^3/uL (0.0-0.8); Eosinophils % 0.8 %; Lymphocytes # 2.7 10^3/uL (0.8-4.8); Lymphocytes % 33.6 %; Mean Corpuscular HGB Conc 33.3 g/dL (30-55); Mean Corpuscular Hemoglobin 30.4 pg (27-33); Mean Corpuscular Volume 91.5 fl (85-98); Mean Platelet Volume 8.9 fL (7.4-10.4); Monocytes # 0.7 10^3/uL (0.2-0.9); Monocytes % 8.4 %; Neutrophils # 4.47 10^3/uL (1.8-7.7); Neutrophils % 56.5 %; Nucleated Red Blood Cells % 0 %; Platelet Count 320 10^3/cmm (157-399); Red Blood Count 4.37 10^6/uL (3.85-5.65); White Blood Count 7.89 10^3/uL (3.29-11.43)
[2024-03-11 22:56] LABS: Alanine Aminotransferase 30 U/L (0-33); Albumin Level 4.3 g/dL (3.5-5.2); Alkaline Phosphatase 91 U/L (35-105); Anion Gap 17.8 (5-19); Aspartate Amino Transferase 26 U/L (0-32); Blood Urea Nitrogen 17 mg/dL (6-20); Carbon Dioxide 22 mmol/L (22-29); Chloride 103 mmol/L (98-107); Creatinine Clr Calc Pharmacy 144.5936; Glomerular Filtration Rate 98.9 mL/min (90-130); Glucose 94 mg/dL (65-115); Lipase 23 U/L (13-60); Osmolality Calculated 289 mOsm/kg (285-295); Potassium 3.8 mmol/L (3.5-5.1); Sodium 139 mmol/L (136-145); Total Bilirubin 0.2 mg/dL (0.15-1.2); Total Protein 7.3 g/dL (6.6-8.7)
[2024-03-11 23:00] VITALS: BP 129/80; PULSE 80; RESP 16; O2SAT 95
== END 2024-03-11 23:15 | disposition home or self-care (01) ==
PROVIDERS: Emergency Provider Emergency Medicine
DX: R11.11 Vomiting without nausea (principal); F84.0 Autistic disorder
CPT/HCPCS: 36415; 80053; 81001; 83690; 85025; 86140; 99283

== ENCOUNTER 2024-03-25 17:49 | Inpatient (IN) | payer OTHER, SELFPAY ==
[2023-12-12 16:59] VITALS: BP 123/71; BMI 32.5
[2024-03-25 17:54] VITALS: BP 143/87; PULSE 72; RESP 16; TEMP 36.7; O2SAT 99; BMI 37.4
--- NOTE | 2024-03-25 18:05 | ECG_ITS ---
[facility] Test Date: 2024-03-25 Pat Name: Kamini Meyer Department: Room: Gender: Female Wet Finisher: : 1995 Requested By: Bee Nugent Order Number: [id number] Yuri MD: Kaushal Borges M.D. Measurements Intervals [place] Rate: 60 P: 47 [place]: 226 QRS: 74 QRSD: 93 T: 37 QT: 390 QTc: 391 Interpretive Statements SINUS RHYTHM WITH FIRST DEGREE AV BLOCK Compared to ECG 11/17/2015 13:54:05 First degree AV block now present T-wave abnormality no longer present Electronically Signed On 03-26-2024 9:02:30 CDT by Kaushal Borges M.D. [id number]
--- NOTE | 2024-03-25 18:06 | PC.NURSE ---
POISON CONTROL CONTACTED. MINOR SYMPTOMS EXPECTED: GI UPSET, N/V, DIZZINESS, MARTINEZ. BASELINE LABS, DRUG SCREEN NEEDED. PROVIDER NOTIFIED.
[2024-03-25 18:54] LABS: Basophils % 0.4 %; Eosinophils # 0.1 10^3/uL (0.0-0.8); Hematocrit 41.8 % (36-47); Lymphocytes # 3.2 10^3/uL (0.8-4.8); Lymphocytes % 41.1 %; Mean Corpuscular HGB Conc 33.3 g/dL (30-55); Mean Corpuscular Hemoglobin 30.3 pg (27-33); Mean Corpuscular Volume 91.3 fl (85-98); Mean Platelet Volume 9.2 fL (7.4-10.4); Monocytes # 0.6 10^3/uL (0.2-0.9); Monocytes % 7.9 %; Neutrophils # 3.86 10^3/uL (1.8-7.7); Neutrophils % 49.5 %; Nucleated Red Blood Cells % 0 %; Platelet Count 305 10^3/cmm (157-399); Red Blood Count 4.58 10^6/uL (3.85-5.65); Red Cell Distribution Width 12.2 % (12.1-15.1); White Blood Count 7.81 10^3/uL (3.29-11.43)
--- NOTE | 2024-03-25 18:54 | PC.NURSE ---
EKG performed by murtaza.
--- NOTE | 2024-03-25 19:03 | PC.NURSE ---
Patient was dressed out and placed in green paper scrubs. All belongings removed from patient.
--- NOTE | 2024-03-25 19:04 | PC.NURSE ---
Dr Pierce updated patient and patient's mother on current patient status as well as intentions to admit.
[2024-03-25 19:05] LABS: HCG, Serum Qual Negative (Negative)
--- NOTE | 2024-03-25 19:06 | PC.NURSE ---
Per Dr Pierce, mother is allowed to remain at bedside as well as administer home meds.
--- NOTE | 2024-03-25 19:08 | PC.NURSE ---
Adenike VELOZ and preceptor Ruthy VELOZ assumed care of patient at shift change from Lina VELOZ.
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
[2024-03-25 19:19] VITALS: BP 109/62; PULSE 80; RESP 16; O2SAT 97
[2024-03-25 19:26] LABS: Bilirubin Urine Negative (Negative); Blood Urine Negative (Negative); Glucose Urine UA Negative (Normal); Ketones Urine Negative (Negative); Leukocyte Esterase Urine Negative (Negative); Nitrate Urine Negative (Negative); Protein Urine Negative (Negative); Specific Gravity, Urine 1.014 (1.005-1.030); Urine Appearance Clear (CLEAR); Urine Color Yellow (Yellow); Urobilinogen Urine 0.2 mg/dL (Negative); pH Urine 6.5 (5-7)
[2024-03-25 19:27] LABS: Alanine Aminotransferase 31 U/L (0-33); Albumin Level 4.6 g/dL (3.5-5.2); Alkaline Phosphatase 98 U/L (35-105); Anion Gap 17.9 (5-19); Aspartate Amino Transferase 27 U/L (0-32); Blood Urea Nitrogen 17 mg/dL (6-20); Calcium 9.5 mg/dL (8.5-10.5); Carbon Dioxide 22 mmol/L (22-29); Chloride 103 mmol/L (98-107); Creatinine Clr Calc Pharmacy 169.6404; Globulin 3.1 g/dL (1.3-4.6); Glomerular Filtration Rate 118.2 mL/min (90-130); Glucose 92 mg/dL (65-115); Osmolality Calculated 289 mOsm/kg (285-295); Potassium 3.9 mmol/L (3.5-5.1); Sodium 139 mmol/L (136-145); Total Bilirubin 0.2 mg/dL (0.15-1.2); Total Protein 7.7 g/dL (6.6-8.7)
[2024-03-25 19:32] LABS: Amphetamines Screen Urine Negative (Negative); Barbiturates Screen Urine Negative (Negative); Benzodiazepines Screen Urine Positive (Negative); Cocaine Screen Urine Negative (Negative); Opiate Screen Urine Negative (Negative); PCP Screen Urine Negative (Negative); THC Screen Urine Negative (Negative)
[2024-03-25 19:33] VITALS: BP 116/77; PULSE 97; RESP 26
[2024-03-25 19:39] LABS: Bacteria Urine Trace /hpf; Hyaline Casts Urine 0-4 /lpf; RBC Urine 0-2 /hpf (0-2); Squamous Epithelial Cell Urine 0-5 /hpf (0-5); WBC Urine 0-5 /hpf (0-5)
[2024-03-25 19:43] LABS: Acetaminophen < 5.0 ug/mL (10-30); Alcohol Level < 10 mg/dL (0-10); Salicylate < 0.3 mg/dL (3-10)
[2024-03-25 20:09] VITALS: BP 117/85; PULSE 90; RESP 15; O2SAT 95
[2024-03-25 20:25] VITALS: BP 117/85; PULSE 93; RESP 16; O2SAT 96
[2024-03-25 21:22] VITALS: BP 106/73; PULSE 91; RESP 18; TEMP 36.4; O2SAT 98
[2024-03-25] MEDS: ondansetron 4 MG Tablet 8 MG PO (23:30)
[2024-03-26 04:29] VITALS: BP 98/56; PULSE 63; RESP 16; TEMP 35.8; O2SAT 98
--- NOTE | 2024-03-26 07:57 | PC.NURSE ---
During admission assessment, patient stated that she was in a bad head space yesterday. patient reports consuming an entire bottle of ibuprofen, not to kill herself, but because she wanted to hurt. Patient went on to say that this was not a good plan. Patient rates anxiety 01/05.
[2024-03-26 08:00] VITALS: BP 101/70; PULSE 77; RESP 18; TEMP 36.4; O2SAT 97
[2024-03-26] MEDS: ARIPiprazole 30 mg Tablet 15 MG PO (08:08)
[2024-03-26] MEDS: lamoTRIgine 100 mg Tablet 200 MG PO ×2 (08:09→17:15)
[2024-03-26] MEDS: cetirizine 10 mg Tablet PO ×2 (08:09→17:15)
[2024-03-26] MEDS: escitalopram 10 mg Tablet 40 MG PO (08:09)
[2024-03-26] MEDS: topiramate 25 mg Tablet PO ×2 (08:09→17:15)
[2024-03-26 09:04] LABS: Anion Gap 17.6 (5-19); Blood Urea Nitrogen 14 mg/dL (6-20); Calcium 8.7 mg/dL (8.5-10.5); Carbon Dioxide 21 mmol/L (22-29); Chloride 102 mmol/L (98-107); Creatinine Clr Calc Pharmacy 145.4061; Glomerular Filtration Rate 98.9 mL/min (90-130); Glucose 115 mg/dL (65-115); Osmolality Calculated 285 mOsm/kg (285-295); Potassium 3.6 mmol/L (3.5-5.1); Sodium 137 mmol/L (136-145)
[2024-03-26] MEDS: ondansetron 4 MG Tablet 8 MG PO ×2 (09:31→18:11)
[2024-03-26 12:12] VITALS: BP 120/82; PULSE 87; RESP 18; TEMP 36.7; O2SAT 96
[2024-03-26 12:39] VITALS: BP 120/82; PULSE 87; RESP 18; TEMP 36.7; O2SAT 96
[2024-03-26] MEDS: LORazepam 2 mg Tablet PO ×3 (13:15→20:21)
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
[2024-03-26 16:00] VITALS: BP 114/75; PULSE 91; RESP 18; TEMP 36.4; O2SAT 97
[2024-03-26] MEDS: ARIPiprazole 30 mg Tablet 10 MG PO (17:17)
[2024-03-26] MEDS: acetaminophen 325 mg Tablet 650 MG PO (18:11)
[2024-03-26 20:00] VITALS: BP 97/65; PULSE 73; RESP 18; TEMP 36.3; O2SAT 98
[2024-03-26] MEDS: hyDROXYzine 25 mg Capsule 50 MG PO (20:18)
[2024-03-26] MEDS: NON-FORMULARY MEDICATION (Ramelteon 8 mg tablet) 8 EACH PO (20:21)
[2024-03-27] VITALS: BP 102/63; PULSE 61; RESP 18; O2SAT 96
[2024-03-27 04:00] VITALS: RESP 16
[2024-03-27] MEDS: lamoTRIgine 100 mg Tablet 200 MG PO (07:59)
[2024-03-27] MEDS: escitalopram 10 mg Tablet 40 MG PO (07:59)
[2024-03-27] MEDS: LORazepam 2 mg Tablet PO (07:59)
[2024-03-27] MEDS: ARIPiprazole 30 mg Tablet 25 MG PO (07:59)
[2024-03-27] MEDS: cetirizine 10 mg Tablet PO (07:59)
[2024-03-27] MEDS: topiramate 25 mg Tablet PO (07:59)
[2024-03-27 08:00] VITALS: BP 111/76; PULSE 83; RESP 18; TEMP 36.8; O2SAT 95
[2024-03-27 09:07] VITALS: BP 111/76; PULSE 83; RESP 18; TEMP 36.8; O2SAT 95
[2024-03-27] MEDS: ondansetron 4 MG Tablet 8 MG PO (09:09)
[2024-03-27] MEDS: acetaminophen 325 mg Tablet 650 MG PO (09:56)
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
--- NOTE | 2024-03-27 11:29 | PC.NURSE ---
Discharge Note Patient discharged to home accompanied by father. Discharge instructions reviewed with patient and father, both verbalized understanding of teaching. Belongings & home medications returned upon discharge.
== END 2024-03-27 11:25 | disposition home or self-care (01) | DRG 886 ==
LOC: ER 20:11 → NP 20:17
PROVIDERS: Admitting Provider Psychiatry & Neurology Psychiatry; Emergency Provider Emergency Medicine; Visit Provider Psychiatry & Neurology Psychiatry
DX: F63.9 Impulse disorder, unspecified (principal); R45.851 Suicidal ideations; F84.0 Autistic disorder; K21.9 Gastro-esophageal reflux disease without esophagitis; F41.1 Generalized anxiety disorder; G47.33 Obstructive sleep apnea (adult) (pediatric); F25.1 Schizoaffective disorder, depressive type
CPT/HCPCS: 36415; 80048; 80053; 80306; 80307; 81001; 84443; 84703; 85025; 93005; 97150; 97165; 99285; Q0162

== ENCOUNTER 2024-03-31 16:15 | Emergency (ER) | payer OTHER, SELFPAY ==
[2023-12-12 16:59] VITALS: BP 123/71; BMI 32.5
[2024-03-31 16:18] VITALS: BP 130/85; PULSE 84; RESP 18; TEMP 36.7; O2SAT 98; BMI 36.0
[2024-03-31] MEDS: diphenhydrAMINE 50 mg/mL SDV 1mL IM (16:46)
--- NOTE | 2024-03-31 16:46 | ED_ITS ---
HPI - Allergic Reaction General: Chief complaint: Allergic Reaction Stated complaint: Allergic reaction Time Seen by Provider: 03/31/24 16:33 Source: patient and EMS Mode of arrival: EMS Limitations: no limitations History of Present Illness: HPI narrative: 28-year-old female states she is allergi c to some additives states she has eaten Claudio[employer] just prior to arrival felt like she is having some throat tightness shortness of breath and gave herself her EpiPen roughly 30 minutes ago. States that symptoms have resolved she is just feels a little shaky now after the epinephrine. She denies any chest pain denies any fever she has no rash Associated symptoms: Deny abdominal pain, nausea or vomiting Related Data Home Medications Medication Instructions Recorded Confirmed aripiprazole 15 mg tablet 15 mg PO DAILY 04/23/23 03/25/24 lamotrigine 200 mg tablet 200 mg PO BID 04/23/23 03/25/24 cetirizine 10 mg capsule (All Day 10 mg PO BID 08/13/23 03/25/24 Allergy (cetirizine)) lorazepam 2 mg tablet 2 mg PO QID 08/13/23 03/25/24 melatonin 3 mg capsule 12 mg PO BEDTIME 08/13/23 03/27/24 ramelteon 8 mg tablet 8 mg PO BEDTIME 08/13/23 03/25/24 magnesium 200 mg tablet 400 mg PO BEDTIME 08/14/23 03/26/24 escitalopram oxalate 20 mg tablet 40 mg PO DAILY 01/23/24 03/25/24 (Lexapro) Previous Rx's Medication Instructions Recorded sumatriptan succinate 100 mg tablet See Rx Instructions .Route 12/11/23 .COMPLEX #9 ea topiramate 25 mg tablet (Topamax) 25 mg PO BID 1 month #60 tabs 01/23/24 albuterol 90 mcg-budesonide 80 2 inh inhalation BID PRN wheezing 02/10/24 mcg/actuation HFA aerosol inhaler #10.7 grams (Airsupra) Auto CPAP machine with tubing and #1 ea 02/13/24 supplies ondansetron 8 mg disintegrating 8 mg PO Q6H #14 tabs 03/11/24 tablet aripiprazole 10 mg tablet (Abilify) 10 mg PO DAILY 30 days #30 tabs 03/27/24 Allergies Allergy/AdvReac Type Severity Reaction Status Date / Time benztropine [From Cogentin] Allergy ALGY-Anaphy Verified 03/25/24 14:58 laxis Review of Systems Const: Denies: fever(s), chills, body aches or change in appetite ENMT: Denies: throat pain or dental pain Card: Denies: chest pain Resp: Reports: dyspnea GI: Denies: abdominal pain, nausea, vomiting or diarrhea Musc: Denies: neck pain or back pain Skin/Breast: Denies: rash Neuro: Denies: headache(s) PFSH ED PFSH: Medical History History of impulsive behavior Obstructive sleep apnea of adult Psychiatric care Autism spectrum disorder Anxiety and depression Surgical History History of ankle surgery Family History Other CAD (coronary artery disease) Cancer Diabetes Social History Smoking and tobacco/nicotine status: never used tobacco/nicotine Alcohol intake: never Substance/Drug Use: never Physical Exam Const: COMMON NORMALS: no acute distress, patient oriented x3 and healthy appearing HENMT: COMMON NORMALS: normocephalic and atraumatic HEAD & SCALP: normocephalic and atraumatic THROAT: posterior oropharynx normal Neck/C-Spine: COMMON NORMALS: full ROM and supple Chest: COMMONS NORMALS: normal inspection of the chest Resp: COMMON NORMALS: normal respiratory effort, No retractions, No use of accessory muscles and clear to auscultation bilaterally AUSCULTATION: clear to auscultation bilaterally Cardio: COMMON NORMALS: regular rate, regular rhythm and No murmurs present (Cardio) RATE: regular rate RHYTHM: regular rhythm Extremity: COMMON NORMALS: normal to inspection and full ROM Neuro: COMMON NORMALS: patient oriented x3, moves all extremities and no focal motor deficits Psych: COMMON NORMALS: mental status grossly normal, Normal thought process present and cooperative THOUGHT PROCESS: Normal thought process present Skin: COMMON NORMALS: no rashes or lesions noted and no wounds GENERAL SKIN EXAM: no rashes or lesions noted Course Vital Signs: Vital signs: Vital Signs Temperature 98.1 F 03/31/24 16:18 Pulse Rate 78 03/31/24 16:52 Respiratory Rate 18 03/31/24 16:52 Blood Pressure 135/77 03/31/24 16:52 Pulse Oximetry 96 03/31/24 16:52 Oxygen Delivery Me thod Room Air 03/31/24 16:52 MDM - Allergic Reaction Medical Decision Making Patient presents with allergic reaction she is much improved observe her here she stable for discharge follow-up PCP return if worsening Medical Records I reviewed the patient's medical records. No radiology studies performed this visit Discharge Plan Discharge Patient Disposition: Home Clinical Impression: Allergic reaction Condition: Stable Prescriptions: No Action lamotrigine 200 mg tablet 200 mg PO BID aripiprazole 15 mg tablet 15 mg PO DAILY escitalopram oxalate [Lexapro] 20 mg tablet 40 mg PO DAILY Rx Instructions: increased by PCP per patient report topiramate [Topamax] 25 mg tablet 25 mg PO BID 30 Days Qty: 60 6RF ramelteon 8 mg tablet 8 mg PO BEDTIME All Day Allergy (cetirizine) 10 mg capsule 10 mg PO BID lorazepam 2 mg tablet 2 mg PO QID melatonin 3 mg capsule 12 mg PO BEDTIME sumatriptan succinate 100 mg tablet See Rx Instructions .ROUTE .COMPLEX Qty: 9 3RF Dose Instruction: TAKE 1 TABLET BY MOUTH at ONSET of headache *if no RELIEF MAY REPEAT ONE tab AFTER at least TWO hours* *max of FOUR tabs PER day* Rx Instructions: TAKE 1 TABLET BY MOUTH at ONSET of headache *if no RELIEF MAY REPEAT ONE tab AFTER at least TWO hours* *max of FOUR tabs PER day* Airsupra 90-80 mcg/actuation HFA aerosol inhaler 2 inh inhalation BID PRN (Reason: wheezing) Qty: 10.7 2RF (DME) Auto CPAP machine with tubing and supplies See Rx Instructions .Route .MEDSUPPLY Qty: 1 0RF Rx Instructions: As directed, recommend a auto CPAP settings 6-16 ondansetron 8 mg tablet,disintegrating 8 mg PO Q6H Qty: 14 0RF Rx Instructions: Take 1/2-1 tab every 6 hours as needed for nausea and vomiting Abilify 10 mg tablet 10 mg PO DAILY 30 Days Qty: 30 0RF magnesium 200 mg Tablet 400 mg PO BEDTIME Discharge Orders: Discharge ED (Routine); Ordered 03/31/24 Ordered By: Hailey Shell Discharge Diet: Advance as tolerated Discharge Activity: Resume usual activity Patient Instructions: General Allergic Reaction (ED) Coding Level of Care Code ED Production Planning Supervisor for Akilah Fuentes
[2024-03-31 16:52] VITALS: BP 135/77; PULSE 78; RESP 18; O2SAT 96
--- NOTE | 2024-03-31 17:21 | PC.NURSE ---
pt reports feeling better with no active symptoms at this time.
[2024-03-31 17:28] VITALS: BP 112/66; PULSE 77; O2SAT 98
== END 2024-03-31 17:33 | disposition home or self-care (01) ==
PROVIDERS: Emergency Provider Emergency Medicine
DX: T78.1XXA Other adverse food reactions, not elsewhere classified, initial encounter (principal); F84.0 Autistic disorder; X58.XXXA Exposure to other specified factors, initial encounter
CPT/HCPCS: 96372; 99284; J1200

== ENCOUNTER → 2024-04-22 10:24 | Outpatient (BNVA) | payer OTHER, SELFPAY ==
[2023-12-12 16:59] VITALS: BP 123/71; BMI 32.5
== END ==
PROVIDERS: Visit Provider Nurse Practitioner Family
DX: M19.071 Primary osteoarthritis, right ankle and foot (principal)
CPT/HCPCS: 73630

== ENCOUNTER 2024-06-04 10:10 | Emergency (ER) | payer OTHER, SELFPAY ==
[2023-12-12 16:59] VITALS: BP 123/71; BMI 32.5
[2024-06-04 10:20] VITALS: BP 135/81; PULSE 76; RESP 16; TEMP 37; O2SAT 97; BMI 38.3
--- NOTE | 2024-06-04 10:28 | CTR_ITS ---
PROCEDURE INFORMATION: Exam: CT Head Without Contrast Exam date and time: 06/04/2024 10:52 AM Age: 28 years old Clinical indication: Dizziness; Additional info: Encephalopathy, altered mental status TECHNIQUE: Imaging protocol: Computed tomography of the head without contrast. Radiation optimization: All CT scans at this facility use at least one of these dose optimization techniques: automated exposure control; mA and/or kV adjustment per patient size (includes targeted exams where dose is matched to clinical indication); or iterative reconstruction. COMPARISON: MR cervical spin wo con* [id number] 12/15/2018 5:33 PM RADIATION DOSE METRICS: Total DLP (mGy-cm): 1163.96 FINDINGS: Brain: There is a left middle cranial fossa arachnoid cyst measuring 1.1 x 3.6 x 1.8 cm. There is no evidence of acute parenchymal hemorrhage, extra-axial collection, or acute infarction. There is no mass effect, midline shift, or downward herniation. Cerebral ventricles: No ventriculomegaly. Paranasal sinuses: Visualized sinuses are unremarkable. No fluid levels. Mastoid air cells: Visualized mastoid air cells are well aerated. Bones: Unremarkable. No acute fracture. Soft tissues: Unremarkable. CT/CT head wo con* [id number] IMPRESSION: 1. No evidence of acute intracranial process. 2. Left middle cranial fossa arachnoid cyst.
--- NOTE | 2024-06-04 11:10 | PC.PHAR ---
patient confirms 15mg dose on aripiprazole even though there is a 10mg dose that is newer. she is not aware of any dose decrease on this med
[2024-06-04 11:26] VITALS: BP 116/67; PULSE 78; O2SAT 99
--- NOTE | 2024-06-04 11:47 | W.ED.WEAKNES ---
HPI - Weakness General: Chief complaint: Weakness Stated complaint: dizzy and confuse Time Seen by Provider: 06/04/24 10:29 History of Present Illness: 28-year-old female with a history of impulsive behaviors, autism spectrum disorder, anxiety and depression who presents to the emergency room with complaint of possible starting of catatonic behaviors. She says she has been having episodes where she starts to feel like she cannot walk. She had gone to her therapist and had decided that she wanted to come to the emergency room for evaluation. Currently she has no focal motor deficits. Says she has been having some muscle spasms. We discussed that we could rule out any underlying medical condition that might be causing this but she has a history of catatonia and feels like this may be starting again she will need to seek treatment with her neurologist or psychiatrist as she has in the past. No fevers. No cough. No shortness of breath. No chest pain. No abdominal pain. No nausea or vomiting. Review of Systems Narrative: Constitutional symptoms: Negative except as documented in HPI. Skin symptoms: Negative except as documented in HPI. Eye symptoms: Negative except as documented in HPI. ENMT symptoms: Negative except as documented in HPI. Respiratory symptoms: Negative except as documented in HPI. Cardiovascular symptoms: Negative except as documented in HPI. Gastrointestinal symptoms: Negative except as documented in HPI. Genitourinary symptoms: Negative except as documented in HPI. Musculoskeletal symptoms: Negative except as documented in HPI. Neurologic symptoms: Negative except as documented in HPI. Psychiatric symptoms: Negative except as documented in HPI. Endocrine symptoms: Negative except as documented in HPI. [facility] ED PFSH: Medical History History of impulsive behavior Obstructive sleep apnea of adult Psychiatric care Autism spectrum disorder Anxiety and depression Surgical History History of ankle surgery Family History Other CAD (coronary artery disease) Cancer Diabetes Social History Smoking and tobacco/nicotine status: never used tobacco/nicotine Alcohol intake: never Substance/Drug Use: never Physical Exam Narrative: EXAM NARRATIVE: General: Alert, no acute distress. Skin: Warm, dry. Head: Normocephalic, atraumatic. Neck: Supple, trachea midline. Eye: Extraocular movements are intact. Ears, nose, mouth and throat: mucosa moist. Cardiovascular: Regular, Normal peripheral perfusion. Respiratory: Lungs are clear to auscultation, respirations are non-labored, breath sounds are equal, Symmetrical chest wall expansion. Gastrointestinal: Soft, Nontender, Non distended Musculoskeletal: Normal ROM, no deformity. Neurological: Alert and oriented, No focal neurological deficit observed. Psychiatric: Cooperative, odd affect Course Vital Signs: Vital signs: Vital Signs Temperature 98.6 F 06/04/24 10:20 Pulse Rate 81 06/04/24 13:00 Respiratory Rate 16 06/04/24 10:20 Blood Pressure 132/71 06/04/24 13:00 Pulse Oximetry 96 06/04/24 13:00 Oxygen Delivery Me thod Room Air 06/04/24 13:00 MDM - Weakness Medical Decision Making Medical decision making: Differential diagnosis for patient presenting with generalized weakness including but not limited to and based on the above HPI, review of systems and physical exam: Sepsis. Dehydration. Renal failure. Electrolyte abnormalities. Anemia. Congestive heart failure. Hypotension. Coronary syndrome. Hepatitis. Cirrhosis. Infections such as pneumonia, urinary tract infection, [place] illness, Cellulitis, Viral infections including influenza and Covid-19. Workup: labwork and lab/exam driven imaging ordered to evaluate, rule in and rule out above pathologies. CT head: No acute intracranial process. no intracranial hemorrhage, no evidence of infarct. no evidence of acute fracture.This was reviewed and interpreted by myself the ER physician. Lab Review: Laboratory results were reviewed and interpreted by myself the emergency room physician. Lab work is unremarkable. No leukocytosis. No anemia. No renal failure. No urinary tract infection. Consultation: I spoke with Dr. De León who is on-call for psychiatry extensively. Patient is already on a total of 8 mg of Ativan a day. He does not agree that she needs to be admitted for increased Ativan dosing. He says he would not do this. I discussed this with the patient and she is agreeable. We will give a single dose of Ativan here in the emergency room. I reviewed the patient's medical record. Reexamination: Patient remained stable. No increased work of breathing. No altered mental status. No focal motor deficits. Patient has had no suicidal or homicidal ideation. Assessment and plan: Anxiety Autistic spectrum disorder ?IV Ativan in the emergency room - Discharged home - Discussed findings and plan with patient. Answered any questions. - All laboratory values were reviewed and interpreted personally by myself, the ER physician - All imaging was reviewed and interpreted personally by myself, the ER physician. - Evaluation and treatment of this problem were appropriate in the emergency setting Lab Data 06/04/24 11:29 06/04/24 11:[address] 06/04/24 10:28 IMPRESSION: 1. No evidence of acute intracranial process. 2. Left middle cranial fossa arachnoid cyst. Laboratory Results WBC 7.52 10^3/uL (3.29-11.43) 06/04/24 11:29 RBC 4.66 10^6/uL (3.85-5.65) 06/04/24 11:29 Hgb 13.50 g/dL (11.27-16.99) 06/04/24 11:29 Hct 41.5 % (36-47) 06/04/24 11:29 MCV 89.1 fl (85-98) 06/04/24 11:29 MCH 29.0 pg (27-33) 06/04/24 11:29 MCHC 32.5 g/dL (30-55) 06/04/24 11:29 RDW 12.3 % (12.1-15.1) 06/04/24 11:29 Plt Count 347 10^3/cmm (157-399) 06/04/24 11:29 MPV 9.3 fL (7.4-10.4) 06/04/24 11:29 Neut % (Auto) 63.4 % 06/04/24 11:29 Lymph % (Auto) 28.3 % 06/04/24 11:29 [place] % (Auto) 6.8 % 06/04/24 11:29 Eos % (Auto) 1.1 % 06/04/24 11:29 Baso % (Auto) 0.3 % 06/04/24 11:29 Neut # (Auto) 4.77 10^3/uL (1.8-7.7) 06/04/24 11:29 Lymph # (Auto) 2.1 10^3/uL (0.8-4.8) 06/04/24 11:29 [place] # (Auto) 0.5 10^3/uL (0.2-0.9) 06/04/24 11:29 Eos # (Auto) 0.1 10^3/uL (0.0-0.8) 06/04/24 11:29 Baso # (Auto) 0.0 10^3/uL (0.0-0.1) 06/04/24 11:29 Nucleated RBC % (auto) 0 % 06/04/24 11:29 Nucleated RBCs # 0.0 /100WBC 06/04/24 11:29 Sodium 140 mmol/L (136-145) 06/04/24 11:29 Potassium 4.1 mmol/L (3.5-5.1) 06/04/24 11:29 Chloride 103 mmol/L (98-107) 06/04/24 11:29 Carbon Dioxide 27 mmol/L (22-29) 06/04/24 11:29 Anion Gap 14.1 (5-19) 06/04/24 11:29 BUN 13 mg/dL (6-20) 06/04/24 11:29 Creatinine 0.5 mg/dL (0.5-0.9) 06/04/24 11:29 GFR Calculation 145.9 mL/min (90-130) H 06/04/24 11:29 Glucose 84 mg/dL (65-115) 06/04/24 11:29 Calculated Osmolality 289 mOsm/kg (285-295) 06/04/24 11:29 Lactic Acid 0.7 mmol/L (0.5-2.2) 06/04/24 11:29 Calcium 9.1 mg/dL (8.5-10.5) 06/04/24 11:29 Total Bilirubin 0.2 mg/dL (0.15-1.2) 06/04/24 11:29 AST 29 U/L (0-32) 06/04/24 11:29 ALT 32 U/L (0-33) 06/04/24 11:29 Alkaline Phosphatase 110 U/L (35-105) H 06/04/24 11:29 Creatine Kinase 85 U/L (26-192) 06/04/24 11:29 C-Reactive Protein 11.8 mg/L (0.0-4.9) H 06/04/24 11:29 Total Protein 7.3 g/dL (6.6-8.7) 06/04/24 11:29 Albumin 4.3 g/dL (3.5-5.2) 06/04/24 11:29 Globulin 3.0 g/dL (1.3-4.6) 06/04/24 11:29 Urine Color Yellow (Yellow) 06/04/24 11:58 Urine Appearance Clear (CLEAR) 06/04/24 11:58 Urine pH 7.0 (5-7) 06/04/24 11:58 Ur Specific [place] 1.010 (1.005-1.030) 06/04/24 11:58 Urine Protein Negative (Negative) 06/04/24 11:58 Urine Glucose (UA) Negative (Normal) 06/04/24 11:58 Urine Ketones Negative (Negative) 06/04/24 11:58 Urine Blood Negative (Negative) 06/04/24 11:58 Urine Nitrate Negative (Negative) 06/04/24 11:58 Urine Bilirubin Negative (Negative) 06/04/24 11:58 Urine Urobilinogen 0.2 mg/dL (Negative) 06/04/24 11:58 Ur Leukocyte Esterase Negative (Negative) 06/04/24 11:58 Urine RBC 0-2 /hpf (0-2) 06/04/24 11:58 Urine WBC 0-5 /hpf (0-5) 06/04/24 11:58 Ur Squamous Epith Cells 0-5 /hpf (0-5) 06/04/24 11:58 Amorphous Sediment Not Reportable 06/04/24 11:58 Urine Bacteria None seen /hpf (NONE) 06/04/24 11:58 Hyaline Casts 0-4 /lpf H 06/04/24 11:58 Urine Opiates Screen Negative ng/mL (Negative) 06/04/24 11:58 Ur Barbiturates Screen Negative ng/mL (Negative) 06/04/24 11:58 Ur Phencyclidine Scrn Negative ng/mL (Negative) 06/04/24 11:58 Ur Amphetamines Screen Negative ng/mL (Negative) 06/04/24 11:58 U Benzodiazepines Scrn Positive ng/mL (Negative) H 06/04/24 11:58 Urine Cocaine Screen Negative ng/mL (Negative) 06/04/24 11:58 U Marijuana (THC) Screen Negative ng/mL (Negative) 06/04/24 11:58 Coronavirus (PCR) Negative (Negative) 06/04/24 12:10 Influenza A (PCR) Negative (Negative) 06/04/24 12:10 Influenza Type B (PCR) Negative (Negative) 06/04/24 12:10 RSV (PCR) Negative (Negative) 06/04/24 12:10 No radiology studies performed this visit Discharge Plan Discharge Patient Disposition: Home Clinical Impression: Anxiety, Schizoaffective disorder, depressive type, Autism Condition: Stable Prescriptions: No Action lamotrigine 200 mg tablet 200 mg PO BID aripiprazole 15 mg tablet 15 mg PO DAILY escitalopram oxalate [Lexapro] 20 mg tablet 40 mg PO DAILY Rx Instructions: increased by PCP per patient report esomeprazole magnesium 20 mg capsule,delayed release(DR/EC) 20 mg PO BID All Day Allergy (cetirizine) 10 mg capsule 10 mg PO BID lorazepam 2 mg tablet 2 mg PO QID melatonin 3 mg capsule 12 mg PO BEDTIME Airsupra 90-80 mcg/actuation HFA aerosol inhaler 2 inh inhalation BID PRN (Reason: wheezing) Qty: 10.7 2RF (DME) Auto CPAP machine with tubing and supplies See Rx Instructions .Route .MEDSUPPLY Qty: 1 0RF Rx Instructions: As directed, recommend a auto CPAP settings 6-16 sumatriptan succinate 100 mg tablet See Rx Instructions .ROUTE .COMPLEX Qty: 9 3RF Dose Instruction: TAKE 1 TABLET BY MOUTH at ONSET of headache *if no RELIEF MAY REPEAT ONE tab AFTER at least TWO hours* *max of FOUR tabs PER day* Rx Instructions: TAKE 1 TABLET BY MOUTH at ONSET of headache *if no RELIEF MAY REPEAT ONE tab AFTER at least TWO hours* *max of FOUR tabs PER day* methylphenidate HCl 10 mg tablet 10 mg PO TID magnesium 200 mg Tablet 400 mg PO BEDTIME Discharge Orders: Discharge ED (Routine); Ordered 06/04/24 Ordered By: Bee Pierce Discharge Diet: Usual diet Discharge Activity: Increase activity as tolerated Patient Instructions: Opioid Safety, Pain Management Activity Restrictions/Additional Instructions: Please follow-up with your therapist to soon as possible. If symptoms worsen please follow-up with the [facility] health crisis center tomorrow or the next day. Phone number is [phone]. There is a 24-hour crisis hotline with the number of 570. Hours of operation are 8 AM to 6 PM. Thank you for choosing [facility] for your healthcare needs today. Please realize this is an emergency room and that we are providing you with a medical screening exam and this may not be complete and all inclusive of all the testing and or work up that you may need to determine your ailment or severity of your illness. You have been screened and evaluated and felt safe for discharge. Health conditions do change or evolve sometimes and as such it is important that you follow up with your Primary Doctor to be re checked, 3-5 days is a general good time frame for follow up. You are always welcome to return to the ED for re assessment if your symptoms are worsening or you have new concerns Coding Level of Care Code ED Pulmonary Physician for [place] [facility] Related Data Home Medications Medication Instructions Recorded Confirmed aripiprazole 15 mg tablet 15 mg PO DAILY 04/23/23 06/04/24 lamotrigine 200 mg tablet 200 mg PO BID 04/23/23 06/04/24 cetirizine 10 mg capsule (All Day 10 mg PO BID 08/13/23 06/04/24 Allergy (cetirizine)) lorazepam 2 mg tablet 2 mg PO QID 08/13/23 06/04/24 melatonin 3 mg capsule 12 mg PO BEDTIME 08/13/23 06/04/24 magnesium 200 mg tablet 400 mg PO BEDTIME 08/14/23 06/04/24 escitalopram oxalate 20 mg tablet 40 mg PO DAILY 01/23/24 06/04/24 (Lexapro) esomeprazole magnesium 20 mg 20 mg PO BID 04/22/24 06/04/24 capsule,delayed release methylphenidate HCl 10 mg tablet 10 mg PO TID 06/04/24 06/04/24 Previous Rx's Medication Instructions Recorded albuterol 90 mcg-budesonide 80 2 inh inhalation BID PRN wheezing 02/10/24 mcg/actuation HFA aerosol inhaler #10.7 grams (Airsupra) Auto CPAP machine with tubing and #1 ea 02/13/24 supplies sumatriptan succinate 100 mg tablet See Rx Instructions .Route 04/20/24 .COMPLEX #9 ea Allergies Allergy/AdvReac Type Severity Reaction Status Date / Time benztropine [From [place]] Allergy ALGY-Anaphy Verified 04/30/24 15:38 laxis
[2024-06-04 12:00] VITALS: BP 114/63; PULSE 78; O2SAT 98
[2024-06-04 12:01] LABS: Basophils % 0.3 %; Eosinophils # 0.1 10^3/uL (0.0-0.8); Eosinophils % 1.1 %; Hematocrit 41.5 % (36-47); Lymphocytes # 2.1 10^3/uL (0.8-4.8); Lymphocytes % 28.3 %; Mean Corpuscular HGB Conc 32.5 g/dL (30-55); Mean Corpuscular Volume 89.1 fl (85-98); Mean Platelet Volume 9.3 fL (7.4-10.4); Monocytes # 0.5 10^3/uL (0.2-0.9); Monocytes % 6.8 %; Neutrophils # 4.77 10^3/uL (1.8-7.7); Neutrophils % 63.4 %; Nucleated Red Blood Cells % 0 %; Platelet Count 347 10^3/cmm (157-399); Red Blood Count 4.66 10^6/uL (3.85-5.65); Red Cell Distribution Width 12.3 % (12.1-15.1); White Blood Count 7.52 10^3/uL (3.29-11.43)
[2024-06-04 12:12] LABS: Alanine Aminotransferase 32 U/L (0-33); Albumin Level 4.3 g/dL (3.5-5.2); Alkaline Phosphatase 110 U/L (35-105); Anion Gap 14.1 (5-19); Aspartate Amino Transferase 29 U/L (0-32); Blood Urea Nitrogen 13 mg/dL (6-20); C Reactive Protein 11.8 mg/L (0.0-4.9); Calcium 9.1 mg/dL (8.5-10.5); Carbon Dioxide 27 mmol/L (22-29); Chloride 103 mmol/L (98-107); Creatine Phosphokinase 85 U/L (26-192); Creatinine Clr Calc Pharmacy 213.3673; Glomerular Filtration Rate 145.9 mL/min (90-130); Glucose 84 mg/dL (65-115); Osmolality Calculated 289 mOsm/kg (285-295); Potassium 4.1 mmol/L (3.5-5.1); Sodium 140 mmol/L (136-145); Total Bilirubin 0.2 mg/dL (0.15-1.2); Total Protein 7.3 g/dL (6.6-8.7)
[2024-06-04 12:13] LABS: Lactic Sepsis W/Reflex 0.7 mmol/L (0.5-2.2)
[2024-06-04 12:13] LABS: Bilirubin Urine Negative (Negative); Blood Urine Negative (Negative); Glucose Urine UA Negative (Normal); Ketones Urine Negative (Negative); Leukocyte Esterase Urine Negative (Negative); Nitrate Urine Negative (Negative); Protein Urine Negative (Negative); Urine Appearance Clear (CLEAR); Urine Color Yellow (Yellow); Urobilinogen Urine 0.2 mg/dL (Negative)
[2024-06-04 12:20] LABS: Amphetamines Screen Urine Negative (Negative); Barbiturates Screen Urine Negative (Negative); Benzodiazepines Screen Urine Positive (Negative); Cocaine Screen Urine Negative (Negative); Opiate Screen Urine Negative (Negative); PCP Screen Urine Negative (Negative); THC Screen Urine Negative (Negative)
[2024-06-04 12:21] LABS: Bacteria Urine None Seen /hpf; Hyaline Casts Urine 0-4 /lpf; RBC Urine 0-2 /hpf (0-2); Squamous Epithelial Cell Urine 0-5 /hpf (0-5); WBC Urine 0-5 /hpf (0-5)
[2024-06-04 12:58] LABS: Covid PCR NEGATIVE (Negative); Influenza A NEGATIVE (Negative); Influenza B NEGATIVE (Negative); Respiratory Syncytial Virus Ce NEGATIVE (Negative)
[2024-06-04 13:00] VITALS: BP 132/71; PULSE 81; O2SAT 96
[2024-06-04] MEDS: LORazepam 2 mg/mL INJ 1 mL IM (14:11)
[2024-06-04 14:13] VITALS: BP 135/78; PULSE 66; O2SAT 94
[2024-06-04 14:41] VITALS: BP 134/99; PULSE 76; O2SAT 97
== END 2024-06-04 14:40 | disposition home or self-care (01) ==
PROVIDERS: Emergency Provider Emergency Medicine
DX: F41.9 Anxiety disorder, unspecified (principal); F25.1 Schizoaffective disorder, depressive type; F84.0 Autistic disorder; Z11.52 Encounter for screening for COVID-19
CPT/HCPCS: 0241U; 70450; 80053; 80306; 81001; 82550; 83605; 85025; 86140; 96372; 99284; J2060

== ENCOUNTER 2024-07-08 07:36 | Outpatient (RCR) | payer OTHER, SELFPAY ==
[2023-12-12 16:59] VITALS: BP 123/71; BMI 32.5
== END 2024-07-28 23:59 | disposition home or self-care (01) ==
LOC: SPT 07:36
PROVIDERS: Visit Provider Specialist
DX: R29.898 Other symptoms and signs involving the musculoskeletal system (principal); R29.6 Repeated falls
CPT/HCPCS: 97110; 97112; 97161

== ENCOUNTER 2024-08-20 07:59 | Outpatient (RCR) | payer OTHER, SELFPAY ==
[2023-12-12 16:59] VITALS: BP 123/71; BMI 32.5
== END 2024-08-28 23:59 | disposition home or self-care (01) ==
LOC: SPT 07:59
PROVIDERS: Visit Provider Specialist
DX: M62.81 Muscle weakness (generalized) (principal)
CPT/HCPCS: 97110; 97112

== ENCOUNTER 2024-08-29 06:30 | Outpatient (RCR) | payer OTHER, SELFPAY ==
[2023-12-12 16:59] VITALS: BP 123/71; BMI 32.5
== END 2024-09-21 08:54 | disposition home or self-care (01) ==
LOC: SPT 06:30
PROVIDERS: Visit Provider Specialist
DX: R29.898 Other symptoms and signs involving the musculoskeletal system (principal); R29.6 Repeated falls
CPT/HCPCS: 97110; 97112; 97164

== ENCOUNTER 2024-11-05 09:27 | Outpatient (CLI) | payer OTHER, SELFPAY ==
[2023-12-12 16:59] VITALS: BP 123/71; BMI 32.5
--- NOTE | 2024-11-05 09:45 | US_ITS ---
WS: [id number] RIGHT UPPER QUADRANT ULTRASOUND HISTORY: ruq pain COMPARISON: None available. Liver: 16.7 cm in length. Normal size liver and echogenicity. No bile duct dilatation or mass. Portal Vein: Normal hepatopetal flow with monophasic waveform. Gallbladder: Normally distended gallbladder with no stones or wall thickening. CBD: 0.4 cm Pancreas: Normal size and echogenicity. Right kidney: 10.7 cm in length. Normal size and echogenicity. No hydronephrosis or mass. Aorta and IVC: Unremarkable abdominal aorta and IVC. No ascites. US/US gall bladder [id number] IMPRESSION: Normal right upper quadrant ultrasound.
== END 2024-11-05 09:28 | disposition home or self-care (01) ==
PROVIDERS: PCP Family Medicine; Visit Provider Family Medicine
DX: R10.11 Right upper quadrant pain (principal)
CPT/HCPCS: 76705

== ENCOUNTER → 2024-11-10 11:13 | Outpatient (BNVA) | payer OTHER, SELFPAY ==
[2023-12-12 16:59] VITALS: BP 123/71; BMI 32.5
== END ==
PROVIDERS: PCP Family Medicine; Visit Provider Psychiatry & Neurology Psychiatry
DX: F25.1 Schizoaffective disorder, depressive type (principal); Z79.899 Other long term (current) drug therapy
CPT/HCPCS: 80061; 83036

== ENCOUNTER 2025-01-08 09:33 | Outpatient (RCR) | payer OTHER, SELFPAY ==
[2024-11-13 14:23] VITALS: BP 119/71; BMI 42.2
== END 2025-01-25 23:59 | disposition home or self-care (01) ==
LOC: SPT 09:33
PROVIDERS: PCP Family Medicine; Visit Provider Family Medicine
DX: M54.41 Lumbago with sciatica, right side (principal)
CPT/HCPCS: 97110; 97162

== ENCOUNTER 2025-01-26 05:00 | Outpatient (RCR) | payer OTHER, SELFPAY ==
[2024-11-13 14:23] VITALS: BP 119/71; BMI 42.2
== END 2025-02-25 23:59 | disposition home or self-care (01) ==
LOC: SPT 05:00
PROVIDERS: PCP Family Medicine; Visit Provider Family Medicine
DX: M54.41 Lumbago with sciatica, right side (principal)
CPT/HCPCS: 97110

== ENCOUNTER → 2025-02-03 08:56 | Outpatient (BNVA) | payer OTHER, SELFPAY ==
[2024-11-13 14:23] VITALS: BP 119/71; BMI 42.2
== END ==
PROVIDERS: PCP Family Medicine; Visit Provider Podiatrist Foot & Ankle Surgery
DX: M25.571 Pain in right ankle and joints of right foot (principal); S93.401A Sprain of unspecified ligament of right ankle, initial encounter; X50.1XXA Overexertion from prolonged static or awkward postures, initial encounter
CPT/HCPCS: 73610

== ENCOUNTER 2025-02-16 14:55 | Outpatient (CLI) | payer OTHER, SELFPAY ==
[2025-02-12 07:28] VITALS: BP 119/71; BMI 42.2
--- NOTE | 2025-02-16 15:15 | MR_ITS ---
WS: [id number] MRI LUMBAR SPINE NONCONTRAST TECHNIQUE: Sagittal T1, T2 and STIR imaging. Axial T1 and T2 imaging. CLINICAL INFORMATION: acute low back pain - urinary incon, saddle anesth FINDINGS: Counting performed from the craniocervical junction. L5 is transitional with rudimentary disc space. Recommend plain film correlation prior to surgical intervention. No acute compression fractures. Shallow disc bulging T11-T12 with slight effacement of the ventral thecal sac. Tiny annular fissure. L1-L2: Mild annular bulging. Mild facet arthropathy. L2-L3: Mild annular bulging. Mild facet arthropathy. Spinal canal and foramen are patent. Tiny annular fissure. L3-L4: Mild annular bulging. Slight narrowing of the LEFT subarticular recess. Mild facet arthropathy. Spinal canal and foramen are patent. L4-L5: Minimal annular bulging. Mild facet arthropathy. Spinal canal and foramen are patent. L5-S1: L5 is transitional. Spinal canal and foramen are patent. Mild facet arthropathy. Visualized pelvic bony structures: Normal. Paravertebral soft tissues: Normal. MR/MR lumbar spine wo con* [id number] IMPRESSION: 1. Counting performed from the craniocervical junction. L5 is transitional w ith rudimentary disc space. Recommend plain film correlation prior to surgical intervention. 2. Mild lumbar curve. No acute compression. 3. No high-grade spinal canal or foraminal narrowing. 4. Shallow central protrusion T11-T12 with slight effacement of the ventral th ecal sac. 5. Slight narrowing of the LEFT L3-4 subarticular recess with slight encroachm ent on the traversing LEFT L4 nerve root. 6. Mild facet arthropathy worse at L3-L4 and L4-L5.
== END 2025-02-16 14:56 | disposition home or self-care (01) ==
LOC: RAD 14:58
PROVIDERS: PCP Family Medicine; Visit Provider Family Medicine
DX: M47.816 Spondylosis without myelopathy or radiculopathy, lumbar region (principal); M48.061 Spinal stenosis, lumbar region without neurogenic claudication; R32 Unspecified urinary incontinence
CPT/HCPCS: 72148

== ENCOUNTER → 2025-02-18 08:49 | Outpatient (BNVA) | payer OTHER, SELFPAY ==
[2025-02-12 07:28] VITALS: BP 119/71; BMI 42.2
== END ==
PROVIDERS: PCP Family Medicine; Visit Provider Orthopaedic Surgery
DX: M54.9 Dorsalgia, unspecified (principal); M54.41 Lumbago with sciatica, right side
CPT/HCPCS: 72110

== ENCOUNTER → 2025-02-23 15:00 | Outpatient (BNVA) | payer OTHER, SELFPAY ==
[2025-02-12 07:28] VITALS: BP 119/71; BMI 42.2
== END ==
PROVIDERS: PCP Family Medicine; Visit Provider Family Medicine
DX: R32 Unspecified urinary incontinence (principal)
CPT/HCPCS: 81000

== ENCOUNTER 2025-03-13 23:40 | Emergency (ER) | payer OTHER, SELFPAY ==
[2025-03-02 09:37] VITALS: BP 119/71; BMI 42.2
[2025-03-13 23:44] VITALS: BP 114/79; PULSE 65; RESP 18; TEMP 36.7; O2SAT 97; BMI 41.3
== END 2025-03-14 01:01 | disposition left against medical advice (07) ==
LOC: ER 23:48
PROVIDERS: Emergency Provider Family Medicine; PCP Family Medicine
DX: Z53.21 Procedure and treatment not carried out due to patient leaving prior to being seen by health care provider (principal)

== ENCOUNTER 2025-03-14 14:03 | Outpatient (CLI) | payer OTHER, SELFPAY ==
[2025-03-02 09:37] VITALS: BP 119/71; BMI 42.2
--- NOTE | 2025-03-14 14:24 | XRR_ITS ---
PROCEDURE INFORMATION: Exam: XR Abdomen Exam date and time: 03/14/2025 2:24 PM Age: 29 years old Clinical indication: Abdominal pain; Additional info: Fecal incontinence TECHNIQUE: Imaging protocol: Radiologic exam of the abdomen. Views: Frontal supine view of the abdomen. 1 View. COMPARISON: CR XR lumbar spine min 4V [id number] 02/18/2025 8:51 AM FINDINGS: Gastrointestinal tract: Bowel-gas pattern is nonspecific. No overly distended small bowel loop. Bones/joints: Unremarkable. XR/XR KUB [id number] IMPRESSION: Bowel-gas pattern is nonspecific.
== END 2025-03-14 14:04 | disposition home or self-care (01) ==
PROVIDERS: PCP Family Medicine; Visit Provider Family Medicine
DX: R15.9 Full incontinence of feces (principal)
CPT/HCPCS: 74018

== ENCOUNTER 2025-03-16 15:39 | Emergency (ER) | payer OTHER, SELFPAY ==
[2025-03-02 09:37] VITALS: BP 119/71; BMI 42.2
[2025-03-16 15:45] VITALS: BP 127/77; PULSE 65; RESP 18; TEMP 36.8; O2SAT 96; BMI 40.3
--- NOTE | 2025-03-16 15:45 | ECG_ITS ---
[facility]25[facility]16 Pat Name: Kamini Meyer Department: Room: Gender: Female Relief Mate: : 1995 Requested By: Baldemar Nugent Order Number: [id number] Yuri MD: Tuan Daniels M.D. Measurements Intervals [place] Rate: 62 P: 9 GA: 219 QRS: 57 QRSD: 84 T: 9 QT: 370 QTc: 378 Interpretive Statements SINUS RHYTHM WITH SINUS ARRHYTHMIA WITH FIRST DEGREE AV BLOCK NONSPECIFIC T-WAVE ABNORMALITY Compared to ECG 03/25/2024 18:12:18 T-wave abnormality now present Electronically Signed On 03-20-2025 08:54:54 CDT by Tuan Daniels M.D. [email or web address]
--- NOTE | 2025-03-16 15:50 | W.ED.GENADLT ---
HPI - General Adult General: Chief complaint: Eye Problems Stated complaint: Blurry Vision, Dizziness, MARTINEZ History of Present Illness: 29-year-old female presents to the emergency room with complaints of blurry vision. She had some dizziness and headache previously that has mostly resolved she is now she does not have a headache but she still has some blurry vision she has not had any other symptoms no vomiting or diarrhea she has had chronic migraine issues in the past. No recent head trauma. Associated symptoms: Deny chest pain, dyspnea or rash Related Data Home Medications ?Medication ?Instructions ?Recorded ?Confirmed lamotrigine 200 mg tablet 200 mg PO BID 04/23/23 03/18/25 cetirizine 10 mg capsule (All Day 10 mg PO BID 08/13/23 03/18/25 Allergy (cetirizine)) magnesium 200 mg tablet 400 mg PO BEDTIME 08/14/23 03/18/25 esomeprazole magnesium 20 mg 20 mg PO BID 04/22/24 03/18/25 capsule,delayed release methylphenidate HCl 10 mg tablet 10 mg PO TID 06/04/24 03/18/25 aripiprazole 15 mg tablet 15 mg PO DAILY 12/25/24 03/18/25 diazepam 5 mg tablet 10 mg PO QID 12/25/24 03/18/25 escitalopram oxalate 20 mg tablet 20 mg PO DAILY 12/25/24 03/18/25 (Lexapro) bupropion HCl 300 mg 24 hr tablet, mg PO 03/14/25 03/18/25 extended release Previous Rx's ?Medication ?Instructions ?Recorded Auto CPAP machine with tubing and #1 ea 02/13/24 supplies trazodone 100 mg tablet 100 mg PO DAILY #30 tabs 10/12/24 CPAP mask #1 ea 10/27/24 fremanezumab-vfrm 225 mg/1.5 mL 225 mg (1.5 mL) SUBCUT ONCE #1.5 mL 11/19/24 subcutaneous auto-injector ([employer]) ondansetron 4 mg disintegrating 4 mg PO Q6H PRN nausea and 02/22/25 tablet vomiting #30 tabs sumatriptan succinate 100 mg tablet See Rx Instructions .Route 03/08/25 .COMPLEX #9 ea albuterol 90 mcg-budesonide 80 2 inh inhalation BID PRN wheezing 08/12/25 mcg/actuation HFA aerosol inhaler #10.7 grams (Airsupra) dicyclomine 20 mg tablet 20 mg PO TID PRN abdominal pain 03/14/25 #30 tabs famotidine 40 mg tablet 40 mg PO DAILY PRN acid reflux #10 03/14/25 tabs sucralfate 1 gram tablet (Carafate) 1 g PO TID acid reflux #30 tabs 03/14/25 sulfamethoxazole 800 1 tab PO BID #20 tabs 03/22/25 mg-trimethoprim 160 mg tablet (Bactrim DS) Allergies Allergy/AdvReac Type Severity Reaction Status Date / Time tizanidine Allergy Severe respiratory Verified 03/18/25 15:11 distress benztropine (From Cogentin) Allergy ALGY-Anaphy Verified 03/18/25 15:11 laxis Review of Systems Const: Denies: fever(s) or chills Eyes: Reports: blurry vision Card: Denies: chest pain Resp: Denies: dyspnea GI: Denies: abdominal pain : Denies: dysuria, urinary frequency or urinary urgency Musc: Denies: neck pain or back pain Skin/Breast: Denies: rash PFSH ED PFSH: Medical History History of impulsive behavior Obstructive sleep apnea of adult Psychiatric care Autism spectrum disorder Anxiety and depression Surgical History History of ankle surgery Family History Other CAD (coronary artery disease) Cancer Diabetes Social History Smoking and tobacco/nicotine status: never used tobacco/nicotine Alcohol intake: never Substance/Drug Use: never Physical Exam Const: COMMON NORMALS: no acute distress GENERAL APPEARANCE: cooperative and comfortable ORIENTATION/CONSCIOUSNESS: Yes awake, Yes oriented to person, Yes oriented to place and Yes oriented to time HENMT: COMMON NORMALS: normocephalic, atraumatic and hearing grossly normal bilaterally HEAD & SCALP: normocephalic and atraumatic Eye: OTHER: Pupils equal react light extraocular is intact visual acuity is tested at the bedside normal. No nystagmus. Resp: COMMON NORMALS: normal respiratory effort, No retractions, No use of accessory muscles and clear to auscultation bilaterally AUSCULTATION: clear to auscultation bilaterally Cardio: COMMON NORMALS: regular rate, regular rhythm and No murmurs present (Cardio) RATE: regular rate RHYTHM: regular rhythm GI: COMMON NORMALS: Soft to palpation and No hepatosplenomegaly present AUSCULTATION: Yes normoactive bowel sounds PALPATION: Yes Soft to palpation, No Tenderness to palpation present (GI), No Guarding due to palpation present (GI) and Yes No hepatosplenomegaly present Extremity: COMMON NORMALS: normal to inspection, capillary refill normal, no clubbing, cyanosis or edema, no calf tenderness and no pedal edema Neuro: SENSORIUM/ORIENTATION: Yes oriented to person, Yes oriented to place and Yes oriented to time Skin: COMMON NORMALS: no rashes or lesions noted GENERAL SKIN EXAM: no rashes or lesions noted Course Vital Signs: Vital signs: Vital Signs Temperature 98.2 F 03/16/25 15:45 Pulse Rate 73 03/16/25 18:00 Respiratory Rate 16 03/16/25 18:00 Blood Pressure 99/84 03/16/25 18:00 Pulse Oximetry 99 03/16/25 18:00 Oxygen Delivery Me thod Room Air 03/16/25 15:45 [facility] - General Adult Medical Decision Making CT of head negative. During the course of the workup patient's symptoms have completely resolved with the time the CT was resulted. She has no further change in symptoms no focal neurologic deficits. CT was negative will discharge patient home have her follow-up with her primary care doctor Medical Records I reviewed the patient's medical records. Lab Data I reviewed the patient's lab results. 03/16/25 15:53 03/16/25 15:[address] 03/16/25 16:47 IMPRESSION: No acute intracranial abnormality. Laboratory Results WBC 10.59 10^3/uL (3.29-11.43) 03/16/25 15:53 RBC 4.62 10^6/uL (3.85-5.65) 03/16/25 15:53 Hgb 13.30 g/dL (11.27-16.99) 03/16/25 15:53 Hct 40.5 % (36-47) 03/16/25 15:53 MCV 87.7 fl (85-98) 03/16/25 15:53 MCH 28.8 pg (27-33) 03/16/25 15:53 MCHC 32.8 g/dL (30-55) 03/16/25 15:53 RDW 13.5 % (12.1-15.1) 03/16/25 15:53 Plt Count 332 10^3/cmm (157-399) 03/16/25 15:53 MPV 9.3 fL (7.4-10.4) 03/16/25 15:53 Neut % (Auto) 75.8 % 03/16/25 15:53 Lymph % (Auto) 18.0 % 03/16/25 15:53 Borden % (Auto) 5.0 % 03/16/25 15:53 Eos % (Auto) 0.5 % 03/16/25 15:53 Baso % (Auto) 0.4 % 03/16/25 15:53 Neut # (Auto) 8.03 10^3/uL (1.8-7.7) H 03/16/25 15:53 Lymph # (Auto) 1.9 10^3/uL (0.8-4.8) 03/16/25 15:53 Borden # (Auto) 0.5 10^3/uL (0.2-0.9) 03/16/25 15:53 Eos # (Auto) 0.1 10^3/uL (0.0-0.8) 03/16/25 15:53 Baso # (Auto) 0.0 10^3/uL (0.0-0.1) 03/16/25 15:53 Nucleated RBC % (auto) 0 % 03/16/25 15:53 Nucleated RBCs # 0.0 /100WBC 03/16/25 15:53 Sodium 141 mmol/L (136-145) 03/16/25 15:53 Potassium 4.0 mmol/L (3.5-5.1) 03/16/25 15:53 Chloride 102 mmol/L (98-107) 03/16/25 15:53 Carbon Dioxide 26 mmol/L (22-29) 03/16/25 15:53 Anion Gap 17.0 (5-19) 03/16/25 15:53 BUN 7 mg/dL (6-20) 03/16/25 15:53 Creatinine 0.7 mg/dL (0.5-0.9) 03/16/25 15:53 GFR Calculation 98.3 mL/min (90-130) 03/16/25 15:53 Glucose 98 mg/dL (65-115) 03/16/25 15:53 Calculated Osmolality 290 mOsm/kg (285-295) 03/16/25 15:53 Calcium 9.8 mg/dL (8.5-10.5) 03/16/25 15:53 Total Bilirubin 0.2 mg/dL (0.15-1.2) 03/16/25 15:53 AST 25 U/L (0-32) 03/16/25 15:53 ALT 37 U/L (0-33) H 03/16/25 15:53 Alkaline Phosphatase 112 U/L (35-105) H 03/16/25 15:53 Total Protein 8.0 g/dL (6.6-8.7) 03/16/25 15:53 Albumin 4.6 g/dL (3.5-5.2) 03/16/25 15:53 Globulin 3.4 g/dL (1.3-4.6) 03/16/25 15:53 All radiology interpretation(s) finalized by discharge Discharge Plan Discharge Patient Disposition: Home Clinical Impression: Blurry vision, bilateral Condition: Stable Prescriptions: No Action lamotrigine 200 mg tablet 200 mg PO BID aripiprazole 15 mg tablet 15 mg PO DAILY Rx Instructions: Per pt. she is taking 25mg escitalopram oxalate [Lexapro] 20 mg tablet 20 mg PO DAILY esomeprazole magnesium 20 mg capsule,delayed release(DR/EC) 20 mg PO BID (DME) CPAP mask See Rx Instructions .Route .MEDSUPPLY Qty: 1 0RF Rx Instructions: As directed diazepam 5 mg tablet 10 mg PO QID [employer] Autoinjector 225 mg/1.5 mL auto-injector 225 mg SUBCUT ONCE Qty: 1.5 6RF Rx Instructions: Inject 1.5ml subcutaneously once every 30 days bupropion HCl 300 mg tablet extended release 24 hr PO famotidine 40 mg tablet 40 mg PO DAILY PRN (Reason: acid reflux) Qty: 10 0RF dicyclomine 20 mg tablet 20 mg PO TID PRN (Reason: abdominal pain) Qty: 30 0RF sucralfate [Carafate] 1 gram tablet 1 g PO TID Qty: 30 0RF All Day Allergy (cetirizine) 10 mg capsule 10 mg PO BID (DME) Auto CPAP machine with tubing and supplies See Rx Instructions .Route .MEDSUPPLY Qty: 1 0RF Rx Instructions: As directed, recommend a auto CPAP settings 6-16 trazodone 100 mg tablet 100 mg PO DAILY Qty: 30 0RF ondansetron 4 mg tablet,disintegrating 4 mg PO Q6H PRN (Reason: nausea and vomiting) Qty: 30 0RF sumatriptan succinate 100 mg tablet See Rx Instructions .ROUTE .COMPLEX Qty: 9 3RF Dose Instruction: TAKE 1 TABLET BY MOUTH at ONSET of HEADACHE. if no RELIEF, MAY REPEAT ONE tablet AFTER at least TWO hours. max of TWO tablets PER DAY Rx Instructions: TAKE 1 TABLET BY MOUTH at ONSET of HEADACHE. if no RELIEF, MAY REPEAT ONE tablet AFTER at least TWO hours. max of TWO tablets PER DAY Airsupra 90-80 mcg/actuation HFA aerosol inhaler 2 inh inhalation BID PRN (Reason: wheezing) Qty: 10.7 2RF sulfamethoxazole-trimethoprim [Bactrim DS] 800-160 mg tablet 1 tab PO BID Qty: 20 0RF methylphenidate HCl 10 mg tablet 10 mg PO TID magnesium 200 mg Tablet 400 mg PO BEDTIME Discharge Orders: Discharge ED (Routine); Ordered 03/16/25 Ordered By: Baldemar Che Referrals: Lexis Yusuf DO [Primary Care Provider, Family Practice] Discharge Diet: Usual diet Discharge Activity: Increase activity as tolerated Patient Instructions: Opioid Safety, Pain Management, Patient Portal & Rom Instructions Activity Restrictions/Additional Instructions: [facility]. It is very important that you follow up as instructed or that you return to the Emergency Department should you have concerns or if your condition changes or worsens in any way. You are seen emergency room with complaints of blurry vision. Your exam and your CT of your head were negative. You reported your symptoms had resolved. We did check eye pressures which were also normal. Follow-up with your primary care doctor if you have persistent symptoms or changes. Print Language: Gibraltarian Coding Level of Care Code ED Cdl Truck Driver for Akilah Fuentes
[2025-03-16 16:02] LABS: Hematocrit 40.5 % (36-47); Hemoglobin 13.30 g/dL (11.27-16.99); Mean Corpuscular HGB Conc 32.8 g/dL (30-55); Mean Corpuscular Hemoglobin 28.8 pg (27-33); Mean Corpuscular Volume 87.7 fl (85-98); Nucleated Red Blood Cells % 0 %; Platelet Count 332 10^3/cmm (157-399); Red Blood Count 4.62 10^6/uL (3.85-5.65); White Blood Count 10.59 10^3/uL (3.29-11.43)
[2025-03-16 16:16] LABS: Alanine Aminotransferase 37 U/L (0-33); Albumin Level 4.6 g/dL (3.5-5.2); Alkaline Phosphatase 112 U/L (35-105); Anion Gap 17.0 (5-19); Aspartate Amino Transferase 25 U/L (0-32); Blood Urea Nitrogen 7 mg/dL (6-20); Calcium 9.8 mg/dL (8.5-10.5); Carbon Dioxide 26 mmol/L (22-29); Chloride 102 mmol/L (98-107); Creatinine Clr Calc Pharmacy 150.1551; Globulin 3.4 g/dL (1.3-4.6); Glucose 98 mg/dL (65-115); Osmolality Calculated 290 mOsm/kg (285-295); Potassium 4.0 mmol/L (3.5-5.1); Sodium 141 mmol/L (136-145); Total Protein 8.0 g/dL (6.6-8.7)
--- NOTE | 2025-03-16 16:47 | CTR_ITS ---
PROCEDURE INFORMATION: Exam: CT Head Without Contrast Exam date and time: 03/16/2025 5:11 PM Age: 29 years old Clinical indication: Pain; Dizziness and visual disturbance; Headache; Additional info: Vision changes TECHNIQUE: Imaging protocol: Computed tomography of the head without contrast. Radiation optimization: All CT scans at this facility use at least one of these dose optimization techniques: automated exposure control; mA and/or kV adjustment per patient size (includes targeted exams where dose is matched to clinical indication); or iterative reconstruction. COMPARISON: CT head wo con* [id number] 06/04/2024 10:52 AM RADIATION DOSE METRICS: Total DLP (mGy-cm): 1096.69 FINDINGS: Brain: Focal enlargement of the CSF space in the anterior left middle cranial fossa is unchanged, compatible with arachnoid cyst. Brain parenchymal density is within normal limits. No mass effect or midline shift. No intracranial hemorrhage. Cerebral ventricles: Ventricle size is normal. Paranasal sinuses: Visualized sinuses are unremarkable. No fluid levels. Mastoid air cells: Visualized mastoid air cells are well aerated. Bones: Unremarkable. No acute fracture. Soft tissues: Unremarkable. CT/CT head wo con* [id number] IMPRESSION: No acute intracranial abnormality.
[2025-03-16 18:00] VITALS: BP 99/84; PULSE 73; RESP 16; O2SAT 99
== END 2025-03-16 18:01 | disposition home or self-care (01) ==
PROVIDERS: Emergency Provider Family Medicine; PCP Family Medicine
DX: H53.8 Other visual disturbances (principal)
CPT/HCPCS: 36415; 70450; 80053; 85025; 93005; 96360; 99284; J7030

== ENCOUNTER → 2025-03-18 14:51 | Outpatient (BNVA) | payer OTHER, SELFPAY ==
[2025-03-02 09:37] VITALS: BP 119/71; BMI 42.2
== END ==
PROVIDERS: PCP Family Medicine; Visit Provider Family Medicine
DX: R30.0 Dysuria (principal); R10.9 Unspecified abdominal pain
CPT/HCPCS: 81000; 87086

== ENCOUNTER 2025-04-02 13:11 | Outpatient (RCR) | payer OTHER, SELFPAY ==
[2025-03-02 09:37] VITALS: BP 119/71; BMI 42.2
== END 2025-04-27 23:59 | disposition home or self-care (01) ==
LOC: SPT 13:11
PROVIDERS: PCP Family Medicine; Visit Provider Specialist
DX: M54.41 Lumbago with sciatica, right side (principal)
CPT/HCPCS: 97110; 97161

== ENCOUNTER → 2025-04-12 10:07 | Outpatient (BNVA) | payer OTHER, SELFPAY ==
[2025-03-02 09:37] VITALS: BP 119/71; BMI 42.2
== END ==
PROVIDERS: PCP Family Medicine; Visit Provider Family Medicine
DX: R30.0 Dysuria (principal)
CPT/HCPCS: 87086

== ENCOUNTER → 2025-06-25 12:56 | Outpatient (BNVA) | payer OTHER, SELFPAY ==
[2025-03-02 09:37] VITALS: BP 119/71; BMI 42.2
== END ==
PROVIDERS: PCP Family Medicine; Visit Provider Emergency Medicine
DX: R39.9 Unspecified symptoms and signs involving the genitourinary system (principal); R11.0 Nausea
CPT/HCPCS: 81000; 87086

== ENCOUNTER 2025-07-26 08:07 | Outpatient (CLI) | payer OTHER, SELFPAY ==
[2025-03-02 09:37] VITALS: BP 119/71; BMI 42.2
--- NOTE | 2025-07-26 08:45 | MM_ITS ---
WS: [id number] Bilateral diagnostic 3D tomosynthesis digital mammogram, 07/26/2025 Clinical Data: mass right breast Comparison: None. Findings: No spiculated masses nor clustered calcifications are seen. The left breast is normal. The right breast has a marker in the upper outer quadrant. No mass or cyst is seen in this region. Scattered fibroglandular tissue is seen in both breasts. There are no secondary signs of carcinoma. MM/MM diag BI tomosynthesis [id number] Impression: 1. Normal bilateral mammograms with no right breast abnormality. 2. Recommend right breast ultrasound. BIRADS: 1 - Negative. FOLLOW UP: See Report The CAD case checker was used
--- NOTE | 2025-07-26 09:15 | US_ITS ---
WS: [id number] Right breast ultrasound, 07/26/2025 Clinical Data: breast mass Comparison: None. Findings: Imaging of the upper outer quadrant of the right breast reveals only normal breast tissue. No cysts or masses were seen. US/US breast RT limited* [id number] Impression: 1. Negative right breast ultrasound. 2. Recommend clinical follow-up. BIRADS: 1 - Negative. FOLLOW UP: See Report
== END 2025-07-26 08:08 | disposition home or self-care (01) ==
LOC: RAD 08:08
PROVIDERS: PCP Family Medicine; Visit Provider Family Medicine
DX: N63.11 Unspecified lump in the right breast, upper outer quadrant (principal); R92.323 Mammographic fibroglandular density, bilateral breasts
CPT/HCPCS: 76642; 77062; G0279